=== PATIENT | female | born 1985 | race Caucasian/White ===

== ENCOUNTER 2022-04-05 10:47 | Outpatient (REF) | payer BC, SELFPAY ==
[2022-04-05 10:59] LABS: MANUAL DIFF FLAG NO
[2022-04-05 11:06] LABS: Basophils Absolute Auto 0.1 X10*3/uL (0.0-0.2); Basophils Percent Auto 0.9 % (0-2); Eosinophils Absolute Auto 0.1 X10*3/uL (0.0-0.4); Eosinophils Percent Auto 0.9 % (0-4); Hematocrit 39.7 % (37.0-47.0); Hemoglobin 12.8 g/dl (12.0-16.0); Imm Gran Abs Auto 0.02 X10*3/uL (0.00-0.03); Imm Gran Pct Auto 0.3 % (0.0-0.4); Lymphocytes Absolute Auto 2.1 X10*3/uL (1.2-4.9); Lymphocytes Percent Auto 32.5 % (20-40); Mean Corpuscular HGB Conc 32.2 g/dl (31.0-35.0); Mean Corpuscular Hemoglobin 28.6 pg (27.0-33.0); Mean Corpuscular Volume 88.8 fL (80.0-98.0); Mean Platelet Volume 9.6 fL (9.4-12.3); Monocytes Absolute Auto 0.6 X10*3/uL (0.1-1.2); Neutrophils Absolute Auto 3.7 x10*3/uL (2.0-8.3); Neutrophils Percent Auto 56.4 % (45-73); Platelet Count 305 X10*3/uL (160-400); Red Blood Count 4.47 X10*6/uL (4.20-5.50); Red Cell Distribution Width 12.9 % (11.0-16.0); White Blood Count 6.6 X10*3/uL (4.8-10.8)
[2022-04-05 11:22] LABS: Appearance Urine Cloudy; Color Urine Yellow; Glucose Urine UA Negative (Negative); Leukocyte Esterase Urine Large (3+) (Negative); Nitrite Urine Negative (Negative); PH >= 9.0 (5.0-9.0); UMIC TRIGGER UA YES; Urine Blood Negative (Negative); Urine Ketones Negative (Negative); Urine Protein 30 (1+) mg/dL (Neg-Trace)
[2022-04-05 11:33] LABS: Alanine Aminotransferase 11 U/L (0-31); Albumin Level 4.4 g/dL (3.5-5.0); Alkaline Phosphatase 75 U/L (39-117); Anion Gap 12 (12-20); Aspartate Amino Transferase 14 U/L (5-31); Bilirubin Total 0.5 mg/dL (0.0-1.0); Blood Urea Nitrogen 8 mg/dL (9-16); Calcium 9.2 mg/dL (8.4-10.2); Carbon Dioxide 25 mmol/L (22-29); Chloride 104 mmol/L (96-108); Cholesterol 191 mg/dL; Estimated Glomerular Filt Rate > 60; Glucose Fasting 98 mg/dL (60-99); HDL Cholesterol 42 mg/dL; LDL Cholesterol Calculated 134 mg/dl; Potassium 4.2 mmol/L (3.3-5.1); Sodium 137 mmol/L (135-145); Total Protein 6.9 g/dL (6.5-8.0); Triglycerides 77 mg/dL
[2022-04-05 11:40] LABS: Microalbum/Creatinine Ratio Ur 3.6 ug/mg cr
[2022-04-05 11:56] LABS: TSH reflex Free T4 2.11 uIU/mL (0.32-4.0)
[2022-04-05 12:17] LABS: Bacteria Urine 4+ (None Seen); Hyaline Casts Urine 0-2 /LPF (0-2); RBC Urine 0-2 /HPF (0-2); WBC Urine 21-50 /HPF (0-5)
== END 2022-04-05 10:48 | disposition home or self-care (01) ==
LOC: HO.LAB 10:47
PROVIDERS: Visit Provider Family Medicine
DX: Z00.00 Encounter for general adult medical examination without abnormal findings (principal); I10 Essential (primary) hypertension
CPT/HCPCS: 36415; 80053; 80061; 81001; 82043; 84443; 85025

== ENCOUNTER 2022-06-02 14:01 | Outpatient (REF) | payer BC, SELFPAY ==
[2022-06-02 14:14] LABS: Appearance Urine Clear; Color Urine Yellow; Glucose Urine UA Negative (Negative); Leukocyte Esterase Urine Moderate (2+) (Negative); Nitrite Urine Negative (Negative); PH 8.5 (5.0-9.0); UMIC TRIGGER UA YES; Urine Blood Negative (Negative); Urine Ketones Negative (Negative); Urine Protein Negative (Neg-Trace)
[2022-06-02 14:25] LABS: Bacteria Urine 1+ (None Seen); Hyaline Casts Urine 0-2 /LPF (0-2); RBC Urine 0-2 /HPF (0-2); Squamous Epithelial Cell Urine 0-2 /HPF (0-2); WBC Urine 0-5 /HPF (0-5)
== END 2022-06-02 14:02 | disposition home or self-care (01) ==
LOC: HO.LNP 14:01
PROVIDERS: Visit Provider Family Medicine
DX: R82.90 Unspecified abnormal findings in urine (principal)
CPT/HCPCS: 81001; 87086

== ENCOUNTER 2022-11-11 07:06 | Outpatient (REF) | payer BC, SELFPAY ==
[2022-11-11 08:17] LABS: Cholesterol 198 mg/dL; HDL Cholesterol 43 mg/dL; LDL Cholesterol Calculated 137 mg/dl; Triglycerides 91 mg/dL
== END 2022-11-11 07:07 | disposition home or self-care (01) ==
LOC: HO.LAB 07:06
PROVIDERS: PCP Family Medicine; Visit Provider Family Medicine
DX: Z00.00 Encounter for general adult medical examination without abnormal findings (principal); E78.00 Pure hypercholesterolemia, unspecified
CPT/HCPCS: 36415; 80061

== ENCOUNTER 2022-11-17 14:50 | Outpatient (AMB) | payer BC, SELFPAY ==
--- NOTE | 2022-11-17 14:45 | MHC.PC.OV ---
Intake Visit Reasons: f/u labs Intake Note: Patient is following up on her labs today. Allergies Seasonal Allergies Allergy (Mild, Verified 11/17/22 14:46) congestion Tobacco use date assessed: 11/17/22 Dental Screening Dental Screen Date: 11/17/22 Did you have a dental visit in the last 12 months?: Yes Did you have a dental problem in the last 6 months where you did not have access to dental care?: No Was dental information given to patient?: Patient has dentist HPI f/u labs HPI Details 37 y/o female presents to f/u CPE-labs via telemedicine. Labs were drawn 11/11/22. Reviewed labs with pt. Triglycerides 91. TC 198. LDL 137. HDL 43. PFSH Medical History Asthma Social History Housing: [place] [place] Patient Tobacco Use Status: Never used Tobacco e-Cigarette/Vaping Use: Never Used service: No Current occupational status: employed Current occupational exposures/hazards: No Cognitive needs: No Hearing needs: No Vision needs: Yes Questionnaire Thrive Questionnaire Date Thrive assessed: 04/01/22 GORAN-7 AMB Questionnaire GORAN-7 Date GORAN - 7 assessed: 04/01/22 Source: Developed by Drs. Arpan Lazo, Kandi Elizondo, Anirudh Ribera and colleagues, with an educational raffy from [employer]. Physical exam (Primary Care) Tobacco/Smoking Status: Tobacco use Status Tobacco use date assessed 11/17/22 11/17/22 14:47 Patient Tobacco Use Status Never used Tobacco 11/17/22 14:47 e-Cigarette/Vaping Use Never Used 11/17/22 14:47 Thrive Assessment: Date of Thrive Assessment Date Thrive assessed 04/01/22 11/17/22 14:47 Telehealth Telehealth Location of provider rendering services: practice address Location of patient: address on file Patient Identification confirmed using: Name, : Yes Telehealth method: voice only Patient verbally consented to treatment: Yes Patient verbally consented to billing insurance company: Yes Patient informed of any privacy concerns related to visit: Yes Minutes spent on Phone/Video with Pt.: 5 Assessment and Plan Assessment & Plan (1) Elevated LDL cholesterol level: Code(s): E78.00 - Pure hypercholesterolemia, unspecified Plan: Ongoing mildly elevated LDL cholesterol Encouraged continued lifestyle changes Will follow-up at her next appointment Orders: Orders Comprehensive [place]. Panel Fast Today Z00.00 - Encounter for general adult medical examination without abnormal findings Lipid Panel Today Z00.00 - Encounter for general adult medical examination without abnormal findings TSH reflex Free T4 Today Z00.00 - Encounter for general adult medical examination without abnormal findings Microalbumin, Random (w Creat) Today I10 - Essential (primary) hypertension UA and rflx microscopic Today Z00.00 - Encounter for general adult medical examination without abnormal findings Coding Level of Care Code Tele Est Pt Level 2 (06854) Diagnoses Elevated LDL cholesterol level E78.00
== END 2022-11-17 15:05 | disposition home or self-care (01) ==
LOC: HO.HMGFM 14:50
PROVIDERS: PCP Family Medicine; Visit Provider Family Medicine
DX: E78.00 Pure hypercholesterolemia, unspecified (principal)
CPT/HCPCS: 99441

== ENCOUNTER 2023-04-01 12:06 | Outpatient (AMB) | payer BC, SELFPAY ==
--- NOTE | 2023-04-01 12:02 | MHC.PC.OV ---
Intake Visit Reasons: Covid positive [phone] Intake Note: Patient would need medication to help her sleep. Patient would also need some type of letter for this visit stating that it was done and what the visit was for. Wiping Cloth Cutter Required: No Allergies Seasonal Allergies Allergy (Mild, Verified 04/01/23 12:04) congestion Tobacco use date assessed: 11/17/22 HPI HPI Comments History of Present Illness Details This is a telephonic telehealth visit for positive COVID-19 Patient reports nasal congestion, sore throat, cough, headaches, subjective fever, chills and sleep disturbances at night. She notes that she tested positive at home for COVID-19 yesterday and the day before. No SOB, wheezing, or chest pain PFSH Medical History Asthma Social History Housing: Apartment ([facility] [place] ) Patient Tobacco Use Status: Never used Tobacco e-Cigarette/Vaping Use: Never Used service: No Current occupational status: employed Current occupational exposures/hazards: No Cognitive needs: No Hearing needs: No Vision needs: Yes Questionnaire Thrive Questionnaire Date Thrive assessed: 04/01/22 GORAN-7 AMB Questionnaire GORAN-7 Date GORAN - 7 assessed: 04/01/22 Source: Developed by Drs. rApan Lazo, Kandi Elizondo, Anirudh Ribera and colleagues, with an educational raffy from [employer] Review of Systems Const Details: Const Reports chills, Denies fatigue, Reports fever(s), Reports headache(s) and Denies weakness ENT Reports as per HPI Card Denies chest pain, Denies lightheadedness, Denies dyspnea and Denies other (Palpitations) Resp Reports cough, Denies dyspnea, Denies wheezing and Denies other ( shortness of breath) GI Denies abdominal pain, Denies melena, Denies hematochezia, Denies change in bowel habits, Denies dyspepsia and Denies nausea Denies hematuria and Denies dysuria Musc Denies abnormal gait, Denies myalgias, Denies arthralgias, Denies numbness and Denies tingling Skin/Breast Denies rash, Denies unusual bruising and Denies wounds Neuro Denies abnormal gait, Denies dizziness, Denies headache(s), Denies memory loss, Denies numbness, Denies Sensory deficit (Neuro), Denies tingling and Denies weakness Psych Denies anxiety, Denies depression, Denies memory loss Endo Denies cold intolerance, Denies fatigue, Denies heat intolerance, Denies polydipsia and Denies polyuria Aller/Immun Denies wheezing Physical exam (Primary Care) Tobacco/Smoking Status: Tobacco use Status Tobacco use date assessed 11/17/22 04/01/23 12:05 Patient Tobacco Use Status Never used Tobacco 04/01/23 12:05 e-Cigarette/Vaping Use Never Used 04/01/23 12:05 Thrive Assessment: Date of Thrive Assessment Date Thrive assessed 04/01/22 04/01/23 12:05 Const Other: Telehealth visit. No physical exam Telehealth Telehealth Location of provider rendering services: practice address Location of patient: address on file Patient Identification confirmed using: Name, : Yes Telehealth method: voice only Patient verbally consented to treatment: Yes Patient verbally consented to billing insurance company: Yes Patient informed of any privacy concerns related to visit: Yes Assessment and Plan Assessment & Plan (1) COVID-19: Code(s): U07.1 - COVID-19 Plan: COVID-19 symptoms No shortness of breath, wheezing, or chest pain May take Tylenol ibuprofen for pain, fever, or discomfort Adequate hydration and rest encouraged Call and notify PCP with worsening or new symptoms such as shortness of breath, chest pain, or wheezing Verbalized understanding and agreed with treatment plan Coding Level of Care Code Tele Est Pt Level 2 (93120) Diagnoses COVID-19 U07.1 Time Spent (min) 15
== END 2023-04-01 14:51 | disposition home or self-care (01) ==
LOC: HO.HMGFM 12:06
PROVIDERS: PCP Family Medicine; Visit Provider Nurse Practitioner Family
DX: U07.1 COVID-19 (principal)
CPT/HCPCS: 99442

== ENCOUNTER 2023-06-02 08:43 | Outpatient (REF) | payer BC, SELFPAY ==
[2023-06-02 10:17] LABS: Alanine Aminotransferase 12 U/L (0-31); Albumin Level 4.2 g/dL (3.5-5.0); Alkaline Phosphatase 77 U/L (39-117); Anion Gap 10 (12-20); Appearance Urine Clear; Aspartate Amino Transferase 14 U/L (5-31); Bilirubin Total 0.5 mg/dL (0.0-1.0); Blood Urea Nitrogen 9 mg/dL (9-16); Calcium 10.6 mg/dL (8.4-10.2); Carbon Dioxide 29 mmol/L (22-29); Chloride 104 mmol/L (96-108); Cholesterol 221 mg/dL (<200); Color Urine Yellow; Estimated Glomerular Filt Rate > 60; Glucose Fasting 93 mg/dL (60-99); Glucose Urine UA Negative (Negative); HDL Cholesterol 51 mg/dL (>40); LDL Cholesterol Calculated 149 mg/dL (<100); Leukocyte Esterase Urine Trace (Negative); Nitrite Urine Negative (Negative); Potassium 4.4 mmol/L (3.3-5.1); Sodium 139 mmol/L (135-145); Total Protein 7.2 g/dL (6.5-8.0); Triglycerides 105 mg/dL (<150); UMIC TRIGGER UA YES; Urine Blood Trace (Negative); Urine Ketones Negative (Negative); Urine Protein Negative (Neg-Trace)
[2023-06-02 10:26] LABS: Bacteria Urine Trace (None Seen); Hyaline Casts Urine 0-2 /LPF (0-2); Squamous Epithelial Cell Urine 0-2 /HPF (0-2); WBC Urine 0-5 /HPF (0-5)
[2023-06-02 10:38] LABS: TSH reflex Free T4 3.51 uIU/mL (0.32-4.0)
[2023-06-02 11:41] LABS: Creatinine Urine 143.84 mg/dL; Microalbum/Creatinine Ratio Ur 4.8 ug/mg cr (<30)
== END 2023-06-02 08:44 | disposition home or self-care (01) ==
LOC: HO.LAB 08:43
PROVIDERS: PCP Family Medicine; Visit Provider Family Medicine
DX: Z00.00 Encounter for general adult medical examination without abnormal findings (principal); I10 Essential (primary) hypertension
CPT/HCPCS: 36415; 80053; 80061; 81001; 82043; 82570; 84443

== ENCOUNTER 2023-06-08 16:01 | Outpatient (AMB) | payer BC, SELFPAY ==
--- NOTE | 2023-06-08 16:15 | A.OFFPC_ITS ---
Vital Signs 06/08/23 16:16 Height 5 ft 9 in Weight 218 lb BMI 32.2 BP 122/68 Blood Pressure Location Lt brachial Position Sitting Pulse 71 Pulse Source Pulse Oximeter Pulse Oximetry (%) 98 Oxygen Delivery Method Room Air Intake Visit Reasons: CPE with follow-up labs and health maintenance Intake Note: Patient is here for her physical today, and would like her ears looked at, and referral for a sleep clinic. Patient would like to talk about options regarding her bone spur in her foot. Allergies Seasonal Allergies Allergy (Mild, Verified 06/08/23 16:20) congestion Tobacco use date assessed: 06/08/23 Dental Screening Dental Screen Date: 06/08/23 Did you have a dental visit in the last 12 months?: Yes Did you have a dental problem in the last 6 months where you did not have access to dental care?: No Was dental information given to patient?: Patient has dentist HPI CPE with follow-up labs and health maintenance HPI Details 37 y/o female presents for a CPE with f/ u labs and health maintenance. Labs were drawn 06/02/23. Reviewed labs with pt. Triglycerides 105. TC 221. LDL 149. HDL 51. Pt is requestting a referral for a sleep clinic. Pt reports ear discomfort. Pt reports a bone spur in her foot which she had seen asbestos brake lining finisher helper for. She does have plantar fasciitis and asbestos brake lining finisher helper did a steroid injection which helped for a few months but had worn off. She has been doing her exercises periodically. HPI Comments History of Present Illness Details Documentation assistance for Roque Murillo MD, was provided by Malachi Flores, Conditioning Machine Operator on 06/08/2023 4:54 PM YOVANI. I, Dr. Murillo, have read, observed, and verified documentation. [facility] Medical History Asthma Social History Housing: Apartment ([facility] [place] Patient Tobacco Use Status: Never used Tobacco e-Cigarette/Vaping Use: Never Used service: No Current occupational status: employed Current occupational exposures/hazards: No Cognitive needs: No Hearing needs: No Vision needs: Yes Questionnaire PHQ-9 Over the last 2 weeks, how often have you been bothered by any of the following problems? 1. Little interest or pleasure in doing things: several days 2. Feeling down, depressed, or hopeless: several days 3. Trouble falling or staying asleep, or sleeping too much: more than half the days 4. Feeling tired or having little energy: more than half the days 5. Poor appetite or overeating: more than half the days 6. Feeling bad about yourself - or that you are a failure or have let yourself or your family down: several days 7. Trouble concentrating on things, such as reading the newspaper or watching television: more than half the days 8. Moving or speaking so slowly that other people could have noticed. Or the opposite - being so fidgety or restless that you have been moving around a lot more than usual: several days 9. Thoughts that you would be better off or of hurting yourself in some way: not at all Total score: 12 Depression Screening Interpretation: Positive Depression Screening Done: Yes Source: Developed by Drs. Arpan Lazo, Kandi Elizondo, Anirudh Ribera and colleagues, with an educational raffy from [employer]. Thrive Questionnaire Date Thrive assessed: 06/08/23 I am a: Patient What is your living situation today?: I have a steady place to live Within the past 12 months, did the food you bought not last and you didn't have the money to get more?: Never true Within the past 12 months, did you worry whether your food would run out before you got money to buy more?: Never true Do you have trouble paying for medicines?: No Do you have trouble getting transportation to medical appointments?: No Do you have trouble paying your heating and electricity bill?: No Do you have trouble taking care of your child, family member or friend?: No Do you have trouble with day-to-day activities such as bathing, preparing meals, shopping, managing finances, etc.?: No Are you currently unemployed and looking for a job?: No Are you interested in more education?: No THRIVE Score: 0 AUDIT C Alcohol Use Questionnaire (AUDIT-C) 1. How often do you have a drink containing alcohol?: Monthly or less 2. How many drinks containing alcohol do you have on a typical day when you are drinking?: 1 or 2 3. How often do you have six or more drinks on one occasion?: Never Total Score: 1 GORAN-7 AMB Questionnaire GORAN-7 Date GORAN - 7 assessed: 06/08/23 Feeling nervous, anxious, or on edge: 1 = Several days Not being able to stop or control worryin = Several days Worrying too much about different things: 1 = Several days Trouble relaxin = Several days Being so restless that it is hard to sit still: 1 = Several days Becoming easily annoyed or irritable: 1 = Several days Feeling afraid as if something awful might happen: 1 = Several days Total GORAN-7 score (0-4 normal; 5-9 mild; 10-14 moderate; 15-21 severe): 7 Source: Developed by Drs. Arpan Lazo, Kandi Elizondo, Anirudh Ribera and colleagues, with an educational raffy from [employer]. Review of Systems Const Denies chills, Denies fatigue, Denies fever(s), Denies headache(s) and Denies weakness Eyes Denies change in vision ENT Denies dizziness, Denies headache(s), Denies hearing loss, Denies nasal congestion, Denies sinus pain, Denies sinus pressure and Denies sore throat Card Denies chest pain, Denies lightheadedness, Denies dyspnea and Denies other (palpitations) Resp Denies cough, Denies dyspnea and Denies wheezing GI Denies abdominal pain, Denies melena, Denies hematochezia, Denies change in bowel habits, Denies dyspepsia and Denies nausea Denies hematuria and Denies dysuria Musc Denies abnormal gait, Denies myalgias, Denies arthralgias, Denies numbness and Denies tingling Skin/Breast Denies rash, Denies unusual bruising and Denies wounds Neuro Denies abnormal gait, Denies dizziness, Denies headache(s), Denies memory loss, Denies numbness, Denies Sensory deficit (Neuro), Denies tingling and Denies weakness Psych Denies anxiety, Denies depression and Denies memory loss Endo Denies cold intolerance, Denies fatigue, Denies heat intolerance, Denies polydipsia and Denies polyuria Wilder/Lymph Denies easy bleeding and Denies easy bruising Aller/Immun Denies wheezing Physical exam (Primary Care) Vital Signs: Last Vital Signs Pulse 71 06/08/23 16:16 BP 122/68 06/08/23 16:16 Pulse Ox 98 06/08/23 16:16 Oxygen Delivery Method Room Air 06/08/23 16:16 BMI result Body Mass Index 32.2 Tobacco/Smoking Status: Tobacco use Status Tobacco use date assessed 06/08/23 06/08/23 16:20 Patient Tobacco Use Status Never used Tobacco 06/08/23 16:18 e-Cigarette/Vaping Use Never Used 06/08/23 16:18 PHQ-9: PHQ-9 Score PHQ-9: Total score 12 06/08/23 16:30 Depression Screening Interpretation: Positive Thrive Assessment: Date of Thrive Assessment Date Thrive assessed 06/08/23 06/08/23 16:30 Const General: no acute distress, well developed, alert and awake Nutritional Appearance: well nourished Orientation/consciousness: patient oriented x3 HENMT Head: Yes normocephalic and Yes atraumatic Ears: hearing grossly normal bilaterally and TM's normal bilaterally General nose exam: Normal external nose present and Normal nares present Mouth: Normal oral and palatal mucosa present and moist mucous membranes Teeth and gingiva: dentition normal Throat: Yes posterior oropharynx normal Eyes General: appearance normal, both eyes and all related structures Pupils: Equal, round and reactive pupils present and Pupil accommodation reflex normal EOM: EOMs intact bilaterally Neck Neck: Yes normal visual inspection, Yes no lymphadenopathy and Yes trachea midline Thyroid: Thyroid normal Carotids: no bruits Lymphatic: no lymphadenopathy noted Chest Chest palpation & inspection: normal inspection of the chest Resp Effort & Inspection: normal respiratory effort Auscultation: clear to auscultation bilaterally Cardio Rate: regular rate Rhythm: regular rhythm Heart sounds: S1 normal heart sound present, S2 normal heart sound present, no gallops, no murmurs and no rubs Bruits: no abdominal aortic bruits and no carotid bruits GI Palpation (GI): No Abdominal aortic bruit present, Soft to palpation, nontender, No hepatosplenomegaly present and No Rebound tenderness present Auscultation: normal bowel sounds General: Yes no CVA tenderness Back/Spine/Pelvis Back: no CVA tenderness Cervical Spine: cervical ROM normal and No Cervical spine tenderness Thoracic/Lumbar Spine: thoraco-lumbar ROM normal, No pain with thoraco-lumbar ROM, No thoracic spinal tenderness and No lumbar spinal tenderness Skin Lesions: no lesions Rashes: no rashes Trauma: no lacerations or abrasions Wounds: no wounds Nails: normal Neuro General: patient oriented x3 Cranial nerves: Yes Equal, round and reactive pupils present Cognition (Neuro): normal cognition Gait exam (Neuro): Normal gait present Motor exam (neuro): 5/5 motor strength present throughout Sensory Exam: No Sensory deficit (Neuro) Deep tendon reflexes (DTR's): Right patellar reflex intensity grade: 2+ and Left patellar reflex intensity grade: 2+ Extrem General: Yes normal to inspection and No edema Psych Appearance: grossly normal Affect: normal affect Attitude: cooperative Thought process: Normal thought process present Assessment and Plan Assessment & Plan (1) Adult general medical exam: Code(s): Z00.00 - Encounter for general adult medical examination without abnormal findings Plan: 37-year-old?female?presents?for?complete?physical?exam (2) Hypercholesterolemia: Code(s): E78.00 - Pure hypercholesterolemia, unspecified Plan: Cholesterol?levels?including?LDL?have?risen She?wants?to?work?at?dietary?changes.??We?will?follow-up?in?3?months. We?discussed?that? if?she?is?not?able?to?improve?lipid?levels?we?should?discuss?a?statin?medication . (3) Sleep apnea: Code(s): G47.30 - Sleep apnea, unspecified Plan: Referred?to?Sleep?Medicine (4) Cerumen impaction: Code(s): H61.20 - Impacted cerumen, unspecified ear Plan: Only?mild?cerumen?impactions?bilaterally. She?can?try?Debrox?drops?and?if?not?improving?she?can?let?us?know?and?we?can?try ?irrigation. (5) Asymptomatic bacteriuria: Code(s): R82.71 - Bacteriuria Plan: She?is?asymptomatic Recheck?urinalysis She?will?let?me?know?if?she?has?any?symptoms. Hydrate?well (6) Plantar fasciitis: Code(s): M72.2 - Plantar fascial fibromatosis Plan: Patient?has?seen?Podiatry?and?had?steroid?injections?which?helped?temporarily. Will?refer?to?[facility]?for?consider ation?of?injection?therapy?as?well?as?improved?physical?therapy. (7) Screening for cervical cancer: Code(s): Z12.4 - Encounter for screening for malignant neoplasm of cervix Plan: Patient?had?her?last?Pap?smear?about?3?years?ago. Will?follow-up?at?her?next?visit?to?ensure?that?she?has?her?next?Pap?smear. Orders: Orders Lipid Panel Today E78.00 - Pure hypercholesterolemia, unspecified, Z00.00 - Encounter for general adult medical examination without abnormal findings UA and rflx microscopic Today Z00.00 - Encounter for general adult medical examination without abnormal findings Comprehensive [place]. Panel Fast Today E78.00 - Pure hypercholesterolemia, unspecified, Z00.00 - Encounter for general adult medical examination without abnormal findings Referrals Physiatry Referral M72.2 - Plantar fascial fibromatosis Sleep Medicine Referral G47.30 - Sleep apnea, unspecified Coding Level of Care Code Est Pt Level 3 (91335) Est Pt Prev Care 18-39y(20628) Diagnoses Adult general medical exam Z00.00 Hypercholesterolemia E78.00 Sleep apnea G47.30 Cerumen impaction H61.20 Asymptomatic bacteriuria R82.71 Plantar fasciitis M72.2 Screening for cervical cancer Z12.4
[2023-06-08 16:16] VITALS: BP 122/68; PULSE 71; O2SAT 98; BMI 32.2
== END 2023-06-08 17:56 | disposition home or self-care (01) ==
PROVIDERS: PCP Family Medicine; Visit Provider Family Medicine
DX: Z00.00 Encounter for general adult medical examination without abnormal findings (principal); E78.00 Pure hypercholesterolemia, unspecified; G47.30 Sleep apnea, unspecified; H61.23 Impacted cerumen, bilateral; R82.71 Bacteriuria; M72.2 Plantar fascial fibromatosis
CPT/HCPCS: 99395

== ENCOUNTER 2023-10-08 12:25 | Outpatient (REF) | payer BC, SELFPAY ==
[2023-10-08 14:45] LABS: Appearance Urine Clear; Color Urine Yellow; Glucose Urine UA Negative (Negative); Leukocyte Esterase Urine Moderate (2+) (Negative); Nitrite Urine Negative (Negative); PH 7.5 (5.0-9.0); Specific Gravity - Urine 1.015 (1.005-1.025); UMIC TRIGGER UA YES; Urine Blood Trace (Negative); Urine Ketones Trace mg/dL (Negative); Urine Protein Negative (Neg-Trace)
[2023-10-08 14:47] LABS: Bacteria Urine 3+ (None Seen)
[2023-10-08 15:38] LABS: Alanine Aminotransferase 12 U/L (0-31); Albumin Level 4.2 g/dL (3.5-5.0); Alkaline Phosphatase 78 U/L (39-117); Anion Gap 13 (12-20); Aspartate Amino Transferase 13 U/L (5-31); Bilirubin Total 0.7 mg/dL (0.0-1.0); Blood Urea Nitrogen 7 mg/dL (9-16); Calcium 9.2 mg/dL (8.4-10.2); Carbon Dioxide 24 mmol/L (22-29); Chloride 107 mmol/L (96-108); Cholesterol 179 mg/dL (<200); Estimated Glomerular Filt Rate > 60; Glucose Fasting 88 mg/dL (60-99); HDL Cholesterol 37 mg/dL (>40); LDL Cholesterol Calculated 126 mg/dL (<100); Potassium 3.9 mmol/L (3.3-5.1); Sodium 140 mmol/L (135-145); Triglycerides 82 mg/dL (<150)
[2023-10-09 18:14] LABS: Lyme Abs Screen <0.90 index
== END 2023-10-08 12:26 | disposition home or self-care (01) ==
LOC: HO.WFDLDS 12:25
PROVIDERS: Physician Assistant Medical; Visit Provider Family Medicine
DX: Z00.00 Encounter for general adult medical examination without abnormal findings (principal); T14.8XXA Other injury of unspecified body region, initial encounter; W57.XXXA Bitten or stung by nonvenomous insect and other nonvenomous arthropods, initial encounter; E78.00 Pure hypercholesterolemia, unspecified
CPT/HCPCS: 36415; 80053; 80061; 81001; 86617; 86618

== ENCOUNTER 2023-12-14 12:59 | Outpatient (AMB) | payer BC, SELFPAY ==
--- NOTE | 2023-12-14 13:22 | AM.OFFWIN_ITS ---
Intake Vital Signs 12/14/23 13:23 Height 5 ft 9 in Weight 220 lb 2 oz BMI 32.5 BP 98/64 Blood Pressure Location Lt brachial Position Sitting Respiration 14 Pulse 54 Pulse Source Pulse Oximeter Pulse Oximetry (%) 99 Oxygen Delivery Method Room Air Intake Visit Reasons: UTI Intake Note: patient complaining of abd pain, back pain, burning when urinating, fatigue and headache since last thursday Patient Tobacco Use Status: Never used Tobacco Allergies Seasonal Allergies Allergy (Mild, Verified 12/14/23 13:48) congestion Medication List - Last Reconciled 12/14/23 by Jodee Mckeon, [facility]- escitalopram oxalate 20 mg PO DAILY 30 days Do you need a note to return to daycare/school/sports/work: Yes HPI HPI Comments History of Present Illness Details 38-year-old female here today with chief complaints of lower abdominal pain. Reports that last Thursday she felt generally under the weather and had a headache. She treated these symptoms with rest. Then over the last day or 2 she developed some lower abdominal pain described as shooting, reports that she has some pain in the left back and into the left groin. She has been drinking water and cranberry juice interesting to see if this would help her symptoms. She admits to feeling warm but unsure if she has not actual fever. She reports that her last menstrual period was a few weeks ago and that there was no chance of . She reports that she feels mildly tender on the external genitalia which started over the weekend, however denies any vaginal itching or discharge. She denies any history of kidney stones. She denies any nausea, vomiting, hematuria. She does endorse starting a new iron supplement about 3 weeks ago Exam: Awake alert NAD Sclera and conjunctiva clear bilat Nares patent, turbinates within normal limits, no sinus tenderness with palpa tion bilat TM intact and clear bilat MMM, pharynx WNL RRR LS CTAB NO CVAT bilat Abd: normoactive bs x 4, pain w palp over RLQ and LLQ without rebound but with gaurding, mild suprapubic pain with palp Plan Urine dip negative Xray today shows constipation otherwise WNL. Patient was called with these results at 16 40. The plan will be to treat her with MiraLax at bedtime and bisacodyl x2 doses. Recommend follow up in 2-3 days to ensure that her symptoms have improved. This note is constructed using voice recognition software. While every effort has been made to ensure accuracy in customer support consultant, still errors may have been included Sometimes, these errors may affect the content or meaning of the given sentence . Total time spent caring for the patient today was 30 minutes. This i ncludes time spent before the visit reviewing the chart, time spent during the visit, and time spent after the visit on documentation PFSH Medical History Asthma Social History Housing: Apartment ([facility] [place] ) Patient Tobacco Use Status: Never used Tobacco e-Cigarette/Vaping Use: Never Used service: No Current occupational status: employed Current occupational exposures/hazards: No Cognitive needs: No Hearing needs: No Vision needs: Yes Physical Exam Vital Signs: Last Vital Signs Pulse 54 12/14/23 13:23 Resp 14 12/14/23 13:23 BP 98/64 12/14/23 13:23 Pulse Ox 99 12/14/23 13:23 Oxygen Delivery Method Room Air 12/14/23 13:23 BMI result Body Mass Index 32.5 Results AMB Urinalysis Dipstick UR Leukocytes Negative Last Edit by Leslie Fuller CMA on 12/14/23 16:33 UR Nitrite Negative Last Edit by Leslie Fuller CMA on 12/14/23 16: 33 UR Urobilinogen Normal Last Edit by Leslie Fuller CMA on 12/14/23 16:33 UR Protein Negative Last Edit by Leslie Fuller CMA on 12/14/23 16: 33 UR Ph 6.5 Last Edit by Leslie Fuller CMA on 12/14/23 16:33 UR Blood Negative Last Edit by Leslie Fuller CMA on 12/14/23 16:33 UR Specific Eros 1.010 Last Edit by Leslie Fuller CMA on 16:33 UR Ketone Negative Last Edit by Leslie Fuller CMA on 12/14/23 16:3 3 UR Bilirubin Negative Last Edit by Leslie Fuller CMA on 12/14/23 16:33 UR Glucose Negative Last Edit by Leslie Fuller CMA on 12/14/23 16: 33 Results Reviewed Results Reviewed: [facility] [address] [facility] [address] [place] [address] XRay Report Signed Patient: Tete Rutherford MR#: [id number] : 1985 Acct:[id number] Age/Sex: 38 / F ADM Date: 12/14/23 Loc: HO.HMGCX Attending Dr: Jodee RESENDIZ Ordering Physician: Jodee Mckeon Date of Service: 12/14/23 Procedure(s): XR abdomen min 2V Accession Number(s): [id number] cc: Roque Murillo MD; Jodee Mckeon~ EXAMINATION: XR ABDOMEN COMPLETE CLINICAL INDICATION: Lower abdominal pain, unspecified. COMPARISON: None available. TECHNIQUE: 2 views of the abdomen performed on 4 images. FINDINGS: The bowel gas pattern is normal with no evidence of ileus or obstruction. Moderate stool burden in the ascending, transverse and descending colon. No unusual soft tissue calcifications are noted. S shaped thoracolumbar scoliosis. The bones are otherwise unremarkable. XR/XR abdomen min 2V IMPRESSION: Moderate stool burden. No evidence of bowel obstruction or ileus. Electronically signed by: Caprice Cole MD 12/14/2023 04:09 PM EDT Dictated By: Caprice Cole MD Signed By: <Electronically signed by Caprice Cole MD in OV> 12/14/23 1609 DD/ 1438 TD/TT: 12/14/23 1444 Water Quality Analyst: ALEX Assessment & Plan Assessment & Plan (1) Lower abdominal pain: Code(s): R10.30 - Lower abdominal pain, unspecified Plan: . (2) Constipation due to pain medication therapy: Code(s): K59.03 - Drug induced constipation Plan: . Orders: Orders AMB Urinalysis Dipstick Today R10.30 - Lower abdominal pain, unspecified Medications: New polyethylene glycol 3350 (Miralax) at bedtime 17 grams PO DAILY 510 grams 0RF bisacodyl 10 mg (2 x 5 mg) PO BEDTIME 2 days 4 tabs 0RF Patient Instructions: Walk-In Care (Urgent Care): We Make it Easy Walk-in for urgent medical issues such as: ? Seasonal Allergies ? Insect Bites ? Cough ? Diarrhea ? Acute Asthma Attacks ? Back, Knee or Joint Pain ? Ear Infection ? Fever without a Rash ? Headaches ? Nausea ? Ricketts Eye, Rash or Skin Irritation ? Sore Throat ? Sports Physicals ? Vomiting Most insurances are accepted. Patients do not need to be part of the [facility] to seek care at the walk-in clinic. Locations [facility] , [place] [address] ? [phone] [facility] [place] [facility] [place] provides services to ages 18 and over. Open Thursday-Thursday: 8 a.m. to 5 p.m. and Thursday: 9 a.m. to 3 p.m.* *Hours may vary due to staffing availability. To confirm Walk-In Care hours in [place], please call [phone]. [address] [place] [address] ? [phone] [facility] [place] provides services to ages 12 and over. Open Thursday-Thursday: 8 a.m. to 5 p.m. Hours may vary due to staffing availability. To confirm Walk-In Care hours in [place], please call [phone]. LABORATORY SERVICES: [facility] ? Primary Location [address] [place] [address] Thursday through Thursday 6:00 AM ? 5:00 PM Thursday 7:00 AM ? 11:00 AM* [phone] The [facility] is centrally located near the front entrance of the Medical Center for easy outpatient access. Convenient parking is provided for outpatients. *Hours may vary due to staffing availability. To confirm Laboratory hours for any location, please call [phone]. Offsite Location For your convenience, we offer offsite laboratory draw stations at the following locations: [address] [place] [address] [address], [address] Thursday through Neer[place] 7:30 AM ? 1:00 PM* [phone] *Hours may vary due to staffing availability. To confirm Laboratory hours for any location, please call [phone]. [place] ? [address] Thursday through Thursday 6:00 AM ? 3:30 PM* Thursday 6:30 AM ? 3 PM* [phone] *Hours may vary due to staffing availability. To confirm Laboratory hours for any location, please call [phone]. [address] [facility] Thursday through Thursday 7:30 AM ? 4:00 PM* [phone] *Hours may vary due to staffing availability. To confirm Laboratory hours for any location, please call [phone] [place] [address] Thursday through 9:00 AM ? 4:00 PM* *Hours may vary due to staffing availability. To confirm Laboratory hours for any location, please call [phone]. Appointments are not necessary. Walk-ins are welcome. Like all the departments throughout the [facility], our Lab undergoes frequent reviews to ensure the quality and accuracy of test results, and our staff takes special pride in its status as a nationally accredited facility. Patient Portal: ONE PATIENT. ONE RECORD. BETTER CARE. [facility] has a fully integrated, cutting- edge mobile electronic health information system that has revolutionized the way we care for our patients and manage our organization. This system improves communication and coordination enabling us to provide safe, higher-quality care, and an overall positive experience for staff and patients. Our first priority, as always, is to deliver the highest quality care possible. The system is running in the background supporting that priority. This portal is for all [facility] and [facility] services and practices. If you are experiencing any technical difficulties with enrolling or logging into the Patient Portal please complete the [facility] Patient Portal Technical Support Form. [facility] now offers a new secure on-line interactive tool for patients to review their health information ? Patient Portal. This interactive web portal will enable patients and their families to take an active role in their care by providing easy, secure access to their health information via the internet. The Patient Portal provides patients with instant access to their health information, including laboratory results, medications, allergies, demographic information, visit history, and more. In addition to managing their own care, parents and health care proxies with authorized consent will appreciate the ability to access the records of those individuals for whom they provide care. Please note: if you wish to gain access (Proxy) to another patient?s portal, you will be required to come to the Medical Records Department in person at [facility]. Both the patient giving proxy access and the proxy will need to provide photo identification and complete the appropriate authorization. The Patient Portal also allows track their appointments online. The [facility] Patient Portal also saves patients time by allowing them to submit updates to their demographic and contact information prior to their visits. Portal email notifications will also alert patients to any new activity on their portal, such as test results and new appointments. In order to initially enroll in the [facility] Patient Portal, you will need to enter some required information including the following: ? your [facility] Medical Record number ? your personal home email address ? name ? date of Please note: In order to enroll in the [facility] Patient Portal, we need to have your email address on file in your electronic medical record. The email address needs to be specific for one person (yourself) in order for your Portal enrollment to be successful. You can update your email address in person with our Registration staff when you are registering for a hospital visit. Otherwise, you will need to come to the Health Information Management (Medical Records) Department at [facility]. We are open from Thursday ? Thursday from 7:30 a.m. ? 4:30 p.m. You will be required to present a photo id. Once you have successfully enrolled in the Patient Portal, you will receive a one-time user id and password for the Portal, sent to your email address. This will allow you to log into the Patient Portal within 99 hrs and reset your own logon id and password, and define personal security questions. Once your permanent login and password have been set, you can log into the [facility] Patient Portal at any time via the blue button above or from the Portal Logon button on any page of the [facility] website. [facility] and [facility] encourage all of our patients to enroll in Patient Portal as it presents a valuable opportunity for patients and their families to actively participate in their care and stay healthy Welcome to [facility]. We look forward to working with you. [address] [place] [address] [place] Coding Level of Care Code Est Pt Level 4 (56990) Diagnoses Lower abdominal pain R10.30 Constipation due to pain medication therapy K59.03
[2023-12-14 13:23] VITALS: BP 98/64; PULSE 54; RESP 14; O2SAT 99; BMI 32.5
== END 2023-12-14 14:01 | disposition home or self-care (01) ==
PROVIDERS: PCP Family Medicine; Visit Provider Nurse Practitioner Family
DX: R10.30 Lower abdominal pain, unspecified (principal); K59.03 Drug induced constipation

== ENCOUNTER → 2023-12-14 12:59 | Outpatient (BNVA) | payer BC, SELFPAY | PROVIDERS: PCP Family Medicine | DX: R10.30 Lower abdominal pain, unspecified (principal); K59.03 Drug induced constipation; T50.905A Adverse effect of unspecified drugs, medicaments and biological substances, initial encounter; Y92.9 Unspecified place or not applicable | CPT/HCPCS: 81002 ==

== ENCOUNTER 2023-12-14 14:34 | Outpatient (REF) | payer BC, SELFPAY ==
--- NOTE | ~2023-12-14 | XR_ITS ---
EXAMINATION: XR ABDOMEN COMPLETE CLINICAL INDICATION: Lower abdominal pain, unspecified. COMPARISON: None available. TECHNIQUE: 2 views of the abdomen performed on 4 images. FINDINGS: The bowel gas pattern is normal with no evidence of ileus or obstruction. Moderate stool burden in the ascending, transverse and descending colon. No unusual soft tissue calcifications are noted. S shaped thoracolumbar scoliosis. The bones are otherwise unremarkable. XR/XR abdomen min 2V IMPRESSION: Moderate stool burden. No evidence of bowel obstruction or ileus. Electronically signed by: Caprice Cole MD 12/14/2023 04:09 PM EDT
== END 2023-12-14 14:35 | disposition home or self-care (01) ==
LOC: HO.HMGCX 14:34
PROVIDERS: PCP Family Medicine; Visit Provider Nurse Practitioner Family
DX: R10.30 Lower abdominal pain, unspecified (principal)
CPT/HCPCS: 74019

== ENCOUNTER 2023-12-16 15:10 | Outpatient (AMB) | payer BC, SELFPAY ==
--- NOTE | 2023-12-16 15:27 | MHC.OFFVIS ---
Vital Signs 12/16/23 15:28 Height 5 ft 9 in Weight 220 lb BMI 32.5 BP 104/74 Blood Pressure Location Rt brachial Position Sitting Intake Visit Reasons: INP-Sleep apnea, unspecified Intake Note: Patient presents for sleep apnea. Patient feels she struggles to get rest at night, feeling tired and fatigue. Allergies Seasonal Allergies Allergy (Mild, Verified 12/16/23 15:31) congestion Medication List - Last Reconciled 12/16/23 by MARISELA Middleton bisacodyl 10 mg (2 x 5 mg) PO BEDTIME 2 days epinephrine 1 mg IM DAILY escitalopram oxalate 20 mg PO DAILY 30 days polyethylene glycol 3350 (Miralax) 17 grams PO DAILY HPI Comments Details: 38-yr-old female presents for new in-person patient visit for sleep consultation. Patient reports chronic fatigue, low energy level, unrefreshing sleep. She tries to eat and drink well. Is a pescatarian. Most recent CBC, CMP, TSH- NL. Sleep questionnaire: Have you ever been diagnosed with a sleep disorder? No Have you ever had a sleep study in the past? No Have you ever been treated for a sleep disorder? No Do you take medications for a sleep disorder? No Do you have difficulty initiating sleep? No Do you have difficulty maintaining sleep? Occasionally at times. Do you wake up tired? Yes Do you have daytime tiredness or fatigue? Yes Do you easily fall asleep when inactive? Yes Do you snore? Unsure Do you wake up gasping at night? Yes Do you have episodes of apneas? No Do you have episodes of nocturnal chest pain or dyspnea? No Do you have bruxism? Maybe Do you have headaches upon awakening? Rare headaches Do you wake up with dry mouth or throat? No- improved after allergy shots Do you have GERD? No Do you have nocturia? No Do you have nocturnal leg cramps? No. Do you have symptoms of restless legs? No Do you act out your dreams? Can wake up laughing. Vivid dreams. Feels her dreams help her process things. Many years ago- woke up realizing that she had been scraping the jasso with her toes- as her toenail pain was on the jasso. Do you have sleep paralysis? Rarely has had this Do you have drop attacks? No Do you ever have hypnogenic hallucinations? Yes Do you have short REM onset in sleep? Denies Hypersomnolence questionnaire: Have you ever had episodes of sudden weakness? No Have you ever had episodes of sudden weakness associated with strong emotions? No Sleep hygiene questionnaire: What is your usual sleep routine? Usual bedtime is at 11pm; Usual wake-up time is at 7-7:30am. Sleeps in later on weekends. On her own she would sleep 1am-12pm. Do you take naps? Trying to nap less- when she naps she sleeps 2-3 hrs Is your sleep environment cool, dark, and quiet? Yes Do you exercise? walks dialy, some yoga. struggling w/ plantar fascitis, but this is improving. Do you take caffeine or other stimulants? 3-4 6oz cups of coffee per day- last cup around 5pm. Do you use electronics in bed? Phone. Does not use her laptop in bed. What is your work schedule? 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 [facility] Medical History (Updated 12/16/23 @ 17:14 by MARISELA Middleton) Anxiety and depression Asthma Family History (Updated 12/16/23 @ 15:33 by PABLITO Hunter) Father Lung cancer Mother Thyroid disease Social History Housing: Apartment ([facility] [place] ) Patient Tobacco Use Status: Never used Tobacco e-Cigarette/Vaping Use: Never Used service: No Current occupational status: employed Current occupational exposures/hazards: No Cognitive needs: No Hearing needs: No Vision needs: Yes Physical Exam Vital Signs: Last Vital Signs BP 104/74 12/16/23 15:28 BMI result Body Mass Index 32.5 Const General: no acute distress Orientation/consciousness: patient oriented x3 HEENT Other: Mallampati stage 3 Resp Effort & Inspection: normal respiratory effort and able to speak in complete sentences Cardio Rate: regular rate Rhythm: regular rhythm Neuro General: patient oriented x3 Psych Mental Status: mental status grossly normal Speech and movement: Clear speech present Attitude: cooperative Assessment & Plan Assessment & Plan (1) Hypersomnia: Code(s): G47.10 - Hypersomnia, unspecified Category: Medical (2) Snoring: Code(s): R06.83 - Snoring Category: Medical (3) Parasomnia: Code(s): G47.50 - Parasomnia, unspecified Category: Medical Plan Pt is advised to undergo sleep study to assess for sleep apnea: HST Check CBC, B12/folate, vit D. Will f/u with pt after study to discuss results and appropriate treatment options. Pt to call with any worsening concerns or questions. Future considerations: in-lab PSG/MSLT. Orders: Orders Vitamin B12 and Folate Today F41.8 - Other specified anxiety disorders, G47.10 - Hypersomnia, unspecified, G47.50 - Parasomnia, unspecified, Z00.00 - Encounter for general adult medical examination without abnormal findings Vitamin D 25-OH (D2 and D3) Today F41.8 - Other specified anxiety disorders, G47.10 - Hypersomnia, unspecified, G47.50 - Parasomnia, unspecified, Z00.00 - Encounter for general adult medical examination without abnormal findings Complete Blood Count Auto Diff Today F41.8 - Other specified anxiety disorders, G47.10 - Hypersomnia, unspecified, G47.50 - Parasomnia, unspecified, Z00.00 - Encounter for general adult medical examination without abnormal findings Coding Level of Care Code New Pt Level 4 (85359) Diagnoses Hypersomnia G47.10 Snoring R06.83 Parasomnia G47.50 Karthaus Sleepiness Scale Questions Sitting and reading: high chance of dozing Watching TV: high chance of dozing Sitting inactive in a theater, movie etc.: slight chance of dozing As a passenger in a car for an hour without break: slight chance of dozing Lying down in the afternoon when circumstances permit: high chance of dozing Sitting and talking to someone: would never doze Sitting quietly after lunch without alcohol: high chance of dozing In a car, while stopped for a few minutes in the traffic: would never doze ESS < 10: normal, ESS > 12: pathologic: 14
[2023-12-16 15:28] VITALS: BP 104/74; BMI 32.5
== END 2023-12-16 16:14 | disposition home or self-care (01) ==
PROVIDERS: PCP Family Medicine; Visit Provider Nurse Practitioner Family
DX: G47.10 Hypersomnia, unspecified (principal); R06.83 Snoring; G47.50 Parasomnia, unspecified
CPT/HCPCS: 99204

== ENCOUNTER → 2023-12-16 15:10 | Outpatient (BNVA) | payer BC, SELFPAY | PROVIDERS: PCP Family Medicine; Visit Provider Nurse Practitioner Family ==

== ENCOUNTER 2024-02-19 10:45 | Outpatient (AMB) | payer BC, SELFPAY ==
--- NOTE | 2024-02-19 10:53 | MHC.PC.OV ---
Vital Signs 02/19/24 10:57 Height 5 ft 9 in Weight 222 lb 4 oz BMI 32.8 BP 110/60 Blood Pressure Location Rt brachial Position Sitting Respiration 18 Pulse 62 Pulse Source Pulse Oximeter Temp 97.8 F Temp Source Oral Pulse Oximetry (%) 97 Oxygen Delivery Method Room Air Intake Visit Reasons: shoulder pain Intake Note: left should pain and fourth metatarsal bone pain Allergies Seasonal Allergies Allergy (Mild, Verified 02/19/24 10:56) congestion Tobacco use date assessed: 06/08/23 Dental Screening Dental Screen Date: 06/08/23 HPI shoulder pain HPI Details 38 y/o female presents today with complaints of shoulder pain. Notes L shoulder pain for months which she states sometimes get worse when she sleeps. She notes symptoms for several months. Denies any trauma. Also reports foot pain. [facility] Medical History (Updated 02/19/24 @ 11:08 by Malachi Flores) Anxiety and depression Asthma Family History (Updated 12/16/23 @ 15:33 by PABLITO Hunter) Father Lung cancer Mother Thyroid disease Social History Housing: [place]ment [place] [place] Patient Tobacco Use Status: Never used Tobacco e-Cigarette/Vaping Use: Never Used service: No Current occupational status: employed Current occupational exposures/hazards: No Cognitive needs: No Hearing needs: No Vision needs: Yes Questionnaire PHQ-9 Over the last 2 weeks, how often have you been bothered by any of the following problems? 1. Little interest or pleasure in doing things: several days 2. Feeling down, depressed, or hopeless: several days 3. Trouble falling or staying asleep, or sleeping too much: more than half the days 4. Feeling tired or having little energy: several days 5. Poor appetite or overeating: several days 6. Feeling bad about yourself - or that you are a failure or have let yourself or your family down: several days 7. Trouble concentrating on things, such as reading the newspaper or watching television: several days 8. Moving or speaking so slowly that other people could have noticed. Or the opposite - being so fidgety or restless that you have been moving around a lot more than usual: not at all 9. Thoughts that you would be better off or of hurting yourself in some way: not at all Total score: 8 Source: Developed by Drs. Arpan Lazo, Kandi Elizondo, Anirudh Ribera and colleagues, with an educational raffy from [employer]. Thrive Questionnaire Date Thrive assessed: 06/08/23 I am a: Patient What is your living situation today?: I have a steady place to live Within the past 12 months, did the food you bought not last and you didn't have the money to get more?: Never true Within the past 12 months, did you worry whether your food would run out before you got money to buy more?: Never true Do you have trouble paying for medicines?: No Do you have trouble getting transportation to medical appointments?: No Do you have trouble paying your heating and electricity bill?: No Do you have trouble taking care of your child, family member or friend?: No Do you have trouble with day-to-day activities such as bathing, preparing meals, shopping, managing finances, etc.?: No Are you currently unemployed and looking for a job?: No Are you interested in more education?: No Please select the resources that you would like help with: None Currently or been in a relationship where the following occur: No concerns reported THRIVE Score: 0 AUDIT C Alcohol Use Questionnaire (AUDIT-C) 1. How often do you have a drink containing alcohol?: Monthly or less 2. How many drinks containing alcohol do you have on a typical day when you are drinking?: 1 or 2 3. How often do you have six or more drinks on one occasion?: Never Total Score: 1 GORAN-7 AMB Questionnaire GORAN-7 Date GORAN - 7 assessed: 06/08/23 Feeling nervous, anxious, or on edge: 1 = Several days Not being able to stop or control worryin = More than half the days Worrying too much about different things: 2 = More than half the days Trouble relaxin = Several days Being so restless that it is hard to sit still: 0 = Not at all Becoming easily annoyed or irritable: 2 = More than half the days Feeling afraid as if something awful might happen: 2 = More than half the days Total GORAN-7 score (0-4 normal; 5-9 mild; 10-14 moderate; 15-21 severe): 10 Source: Developed by Drs. Arpan Lazo, Kandi Elizondo, Anirudh Ribera and colleagues, with an educational raffy from [employer]. Review of Systems Const Denies chills, Denies fatigue, Denies fever(s), Denies headache(s) and Denies weakness ENT Denies dizziness and Denies headache(s) Card Denies dyspnea Resp Denies cough, Denies dyspnea, Denies wheezing and Denies other (shortness of breath) Musc Details: L Shoulder pain Foot pain Denies numbness and Denies tingling Neuro Denies dizziness, Denies headache(s), Denies numbness, Denies tingling and Denies weakness Psych Denies anxiety and Denies depression Endo Denies fatigue Aller/Immun Denies wheezing Physical exam (Primary Care) Vital Signs: Last Vital Signs Temp 97.8 F 02/19/24 10:57 Pulse 62 02/19/24 10:57 Resp 18 02/19/24 10:57 BP 110/60 02/19/24 10:57 Pulse Ox 97 02/19/24 10:57 Oxygen Delivery Method Room Air 02/19/24 10:57 BMI result Body Mass Index 32.8 Tobacco/Smoking Status: Tobacco use Status Tobacco use date assessed 06/08/23 02/19/24 11:00 Patient Tobacco Use Status Never used Tobacco 02/19/24 11:00 e-Cigarette/Vaping Use Never Used 02/19/24 11:00 PHQ-9: PHQ-9 Score PHQ-9: Total score 8 02/19/24 11:00 Thrive Assessment: Date of Thrive Assessment Date Thrive assessed 06/08/23 02/19/24 11:00 Currently or been in a relationship where the following occur: No concerns reported Const General: well developed; No acute distress Nutritional Appearance: well nourished Orientation/consciousness: patient oriented x3 HENMT Head: Yes normocephalic and Yes atraumatic Eyes General: appearance normal, both eyes and all related structures Pupils: Equal, round and reactive pupils present EOM: EOMs intact bilaterally Resp Effort & Inspection: normal respiratory effort Neuro General: patient oriented x3 and gait normal Cranial nerves: Yes Equal, round and reactive pupils present Psych Affect: normal affect Coding Level of Care Code Est Pt Level 3 (69097) Diagnoses Shoulder pain M25.519 Foot pain M79.673 Assessment & Plan Assessment & Plan (1) Shoulder pain: Code(s): M25.519 - Pain in unspecified shoulder Category: Medical Plan: Left?posterior?shoulder?pain?at?trapezius?muscle.??Likely?chronic,?recurrent?strain Should?benefit?from?physical?therapy?which?had?ordered Can?also?use?OTC?ibuprofen?and?ice/heat Call?or?return?to?office?if?not?improving?or?worsens (2) Foot pain: Code(s): M79.673 - Pain in unspecified foot Category: Medical Plan: Mild?abrasion?of?skin on?4th?toe,?between?4th?and?5th?toes Can?use?gauze?as?a?buffer?or?OTC?padding Avoid?neuro?shoes Should?resolve?on?its?own?but?if?not?improving,?will?refer?to?Podiatry Orders: Orders Comprehensive [place]. Panel Fast Today M25.519 - Pain in unspecified shoulder, Z00.00 - Encounter for general adult medical examination without abnormal findings Complete Blood Count Auto Diff Today M25.519 - Pain in unspecified shoulder, Z00.00 - Encounter for general adult medical examination without abnormal findings Lipid Panel Today M25.519 - Pain in unspecified shoulder, Z00.00 - Encounter for general adult medical examination without abnormal findings Microalbumin, Random (w Creat) Today I10 - Essential (primary) hypertension, M25.519 - Pain in unspecified shoulder TSH reflex Free T4 Today M25.519 - Pain in unspecified shoulder, Z00.00 - Encounter for general adult medical examination without abnormal findings PT Evaluation and Treatment Today M25.519 - Pain in unspecified shoulder UA and rflx microscopic Today M25.519 - Pain in unspecified shoulder, Z00.00 - Encounter for general adult medical examination without abnormal findings
[2024-02-19 10:57] VITALS: BP 110/60; PULSE 62; RESP 18; TEMP 36.6; O2SAT 97; BMI 32.8
== END 2024-02-19 11:14 | disposition home or self-care (01) ==
PROVIDERS: PCP Family Medicine; Visit Provider Family Medicine
DX: M25.519 Pain in unspecified shoulder (principal); M79.673 Pain in unspecified foot

== ENCOUNTER 2024-06-28 12:50 | Outpatient (AMB) | payer BC, SELFPAY ==
--- NOTE | 2024-06-28 12:54 | MHC.OFFVIS ---
Vital Signs 06/28/24 12:55 Height 5 ft 9 in Weight 221 lb BMI 32.6 BP 116/80 Blood Pressure Location Rt brachial Position Sitting Pulse 59 Pulse Source Pulse Oximeter Pulse Oximetry (%) 98 Oxygen Delivery Method Room Air Intake Visit Reasons: Follow Up Intake Note: Patient presents follow up Hypersomnia. No labs Allergies Seasonal Allergies Allergy (Mild, Verified 06/28/24 12:58) congestion Medication List - Last Reconciled 06/28/24 by MARISELA Middleton bisacodyl 10 mg (2 x 5 mg) PO BEDTIME 2 days epinephrine 1 mg IM DAILY escitalopram oxalate 20 mg PO DAILY 90 days polyethylene glycol 3350 (Miralax) 17 grams PO DAILY HPI Comments Details: History of Present Illness The patient is a 38-year-old female presenting with sleep disorders. She reports persistent, non-restorative sleep and excessive daytime sleepiness. Sleep study is scheduled for August. Lexapro is noted to cause xerostomia. Allergic rhinitis, treated with immunotherapy, and potential vitamin deficiencies are discussed. History includes non-wheezing asthma. Social History - Weekly allergy shots for multiple environmental allergens. - Relieves symptoms significantly; convenient due to proximity to other frequented locations. Review of Systems - Respiratory: Reports improvement in allergy symptoms with immunotherapy. - Neurological: Reports persistent sleep difficulties, non-restorative sleep, excessive daytime sleepiness. - Psychiatric: Potential contributory effect of depression managed by Lexapro. - Oral Health: Reports dry mouth since starting Lexapro. 12/16/2023, HPI: 38-yr-old female presents for new in-person patient visit for sleep consultation. Patient reports chronic fatigue, low energy level, unrefreshing sleep. She tries to eat and drink well. Is a pescatarian. Most recent CBC, CMP, TSH- NL. Sleep questionnaire: Have you ever been diagnosed with a sleep disorder? No Have you ever had a sleep study in the past? No Have you ever been treated for a sleep disorder? No Do you take medications for a sleep disorder? No Do you have difficulty initiating sleep? No Do you have difficulty maintaining sleep? Occasionally at times. Do you wake up tired? Yes Do you have daytime tiredness or fatigue? Yes Do you easily fall asleep when inactive? Yes Do you snore? Unsure Do you wake up gasping at night? Yes Do you have episodes of apneas? No Do you have episodes of nocturnal chest pain or dyspnea? No Do you have bruxism? Maybe Do you have headaches upon awakening? Rare headaches Do you wake up with dry mouth or throat? No- improved after allergy shots Do you have GERD? No Do you have nocturia? No Do you have nocturnal leg cramps? No. Do you have symptoms of restless legs? No Do you act out your dreams? Can wake up laughing. Vivid dreams. Feels her dreams help her process things. Many years ago- woke up realizing that she had been scraping the jasso with her toes- as her toenail pain was on the jasso. Do you have sleep paralysis? Rarely has had this Do you have drop attacks? No Do you ever have hypnogenic hallucinations? Yes Do you have short REM onset in sleep? Denies Hypersomnolence questionnaire: Have you ever had episodes of sudden weakness? No Have you ever had episodes of sudden weakness associated with strong emotions? No Sleep hygiene questionnaire: What is your usual sleep routine? Usual bedtime is at 11pm; Usual wake-up time is at 7-7:30am. Sleeps in later on weekends. On her own she would sleep 1am-12pm. Do you take naps? Trying to nap less- when she naps she sleeps 2-3 hrs Is your sleep environment cool, dark, and quiet? Yes Do you exercise? walks dialy, some yoga. struggling w/ plantar fascitis, but this is improving. Do you take caffeine or other stimulants? 3-4 6oz cups of coffee per day- last cup around 5pm. Do you use electronics in bed? Phone. Does not use her laptop in bed. What is your work schedule? 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 [facility] Medical History (Updated 02/19/24 @ 11:08 by Malachi Flores) Anxiety and depression Asthma Family History Father Lung cancer Mother Thyroid disease Social History Housing: Apartment ([facility] [place] ) Patient Tobacco Use Status: Never used Tobacco e-Cigarette/Vaping Use: Never Used service: No Current occupational status: employed Current occupational exposures/hazards: No Cognitive needs: No Hearing needs: No Vision needs: Yes Physical Exam Vital Signs: Last Vital Signs Pulse 59 06/28/24 12:55 BP 116/80 06/28/24 12:55 Pulse Ox 98 06/28/24 12:55 Oxygen Delivery Method Room Air 06/28/24 12:55 BMI result Body Mass Index 32.6 Const General: no acute distress Orientation/consciousness: patient oriented x3 Resp Effort & Inspection: normal respiratory effort and able to speak in complete sentences Neuro General: patient oriented x3 Psych Mental Status: mental status grossly normal Speech and movement: Clear speech present Attitude: cooperative Assessment & Plan Assessment & Plan (1) Anxiety with depression: Code(s): F41.8 - Other specified anxiety disorders Category: Medical (2) Hypersomnia: Code(s): G47.10 - Hypersomnia, unspecified Category: Medical (3) Snoring: Code(s): R06.83 - Snoring Category: Medical (4) Parasomnia: Code(s): G47.50 - Parasomnia, unspecified Category: Medical Plan Discussion Notes During the visit, I reiterated the need for a home sleep study as the prior order seems to have not been processed. If results are inconclusive, the option of an in-lab sleep study or MSLT sleep study with mandatory cessation of Lexapro prior to testing was discussed, as medications such as Lexapro can interfere with the results of a MSLT type sleep study. Potential tests for B12, Folate, TSH and Vitamin D were discussed to rule out deficiencies known to contribute to fatigue and somnolence. The patient also mentioned the effectiveness of her ongoing immunotherapy for allergic rhinitis, affirming its beneficial impact on her quality of life. I advised her to stay hydrated due to Lexapro related dry mouth, and I introduced her to Xylemelt as an rarj-[id number]-[id number] remedy. Patient was informed and verbally consented to the use of an ambient scribe for clinic note documentation during this visit. Plan Home sleep study to be completed. Potential follow-up with in-lab study. Labs for vitamin deficiencies as ordered. Recommend addressing xerostomia with hydration and Xylemelt. Continue immunotherapy for allergic rhinitis. Maintain Lexapro for mood management. Will f/u with pt after study to discuss results and appropriate treatment options. Pt to call with any worsening concerns or questions. Future considerations: in-lab PSG/MSLT. Orders: Orders TSH reflex Free T4 06/28/24 G47.10 - Hypersomnia, unspecified, F41.8 - Other specified anxiety disorders Coding Level of Care Code Est Pt Level 4 (00982) Diagnoses Anxiety with depression F41.8 Hypersomnia G47.10 Snoring R06.83 Parasomnia G47.50
[2024-06-28 12:55] VITALS: BP 116/80; PULSE 59; O2SAT 98; BMI 32.6
--- OUTSIDE RECORDS SUMMARY | 2024-06-28 15:00 | XMS_ITS | Clinical Summary ---
Author Organization [facility] Address [address] [place] [address] Care Team Providers Care Sales Project Administrator Name Role Phone Unavailable Primary Care Provider Unavailabl e Source Comments PLEASE NOTE, if this patient is a minor, it may be UNLAWFUL to discuss sensitive information that is contained in these records (such as FAMILY PLANNING, MENTAL HEALTH or SUBSTANCE ABUSE) with the minor patient's parent or other person without the patient's specific authorization.[facility] Allergies No known active allergies Medications ibuprofen (ADVIL,MOTRIN) 800 mg tablet Take 800 mg by mouth every 4 to 6 (four to six) hours as needed Active EPINEPHrine (EPIPEN) 0.3 mg/0.3 mL pen injector Inject 0.3 ml intramuscularly as directed as needed For signs of severe allergic reaction, then call 911 09/24/19 22 Active Active Problems Problem Noted Date Diagnosed Date Otitis externa, acute, right 12/04/2020 Gas pain 01/17/2020 Deviated Nasal Septum 11/19/2018 Turbinate Hypertrophy 11/19/2018 Overweight 11/19/2018 Depression 11/16/2018 Asthma 11/16/2018 Overview (05/18/2024): (History of) Allergic Rhinitis 11/16/2018 Resolved Problems Problem Noted Date Diagnosed Date Resolved Date Diarrhea 01/17/2020 06/06/2024 Cerumen Impaction 11/19/2018 06/06/2024 Nasal congestion 11/19/2018 06/06/2024 Immunizations Immunization Administration Dates Next Due HPV 9 (Gardasil) 02/10/2017,12/09/2016, 7 Family History Medical History Relation Name Comments Alcohol/Drug Abuse Other Asthma Other Depression Other Mental illness Other Vision Problems Other Relation Name Status Comments Other Social History Tobacco Use Types Packs/Day Years Used Date Smoking Tobacco: Never Smokeless Tobacco: Never Alcohol Use Standard Drinks/Week Comments No 0 (1 standard drink = 0.6 oz pur e alcohol) Social Connections Answer Date Recorded Social Connections and Isolation 0 11/21/2018 Financial Resource Strain Answer Date R ecorded Financial Resource Strain 0 2018 Stress Answer Date Recorded Stress 0 11/21/2018 Physical Activity Answer Date Recorded Physical Activity 0 11/21/2018 Food Insecurity Answer Date Recorded Food 0 11/21/2018 Transportation Needs Answer Date Record ed Transportation 0 11/21/2018 Housing Stability Answer Date Recorded Housing 0 11/21/2018 Safety and Environment Answer Date Sandip rded Safety 0 11/21/2018 Utilities Answer Date Recorded Utilities 0 11/21/2018 Employment Answer Date Recorded Employment 0 11/21/2018 Comments Unknown Sex and Gender Information Value Date Recorded Sex Assigned at Not on file Legal Sex Female 10:51 AM PDT Gender Identity Not on file Sexual Orientation Not on file Last Filed Vital Signs Vital Sign Reading Time Taken Comments Blood Pressure 110/90 10/08/2016 3:28 PM PDT Pulse 82 10/08/2016 3:28 PM PDT Temperature 37.2 ??C (98.9 ??F) 10/08/2016 3:28 PM PD T Respiratory Rate 16 10/08/2016 3:28 PM PDT Oxygen Saturation 99% 10/08/2016 3:28 PM PDT Inhaled Oxygen Concentration - - Weight 77.6 kg (171 lb) 10/08/2016 3:28 PM PDT Height 175.3 cm (5' 9 ) 02/10/2017 10:20 AM PST Body Mass Index 25.25 10/08/2016 3:28 PM PDT Plan of Treatment Health Maintenance Due Date Last Done Comments Anxiety Screening 1985 Diabetes Screening 1985 HPV Screening 1985 Hepatitis C Screening 1985 Pap + HPV 1985 Tobacco Screening 1985 HIV Screening 2000 Relationship Safety Screening/Counseling 2000 Imm-DTaP/Tdap/Td (1 - Tdap) 2004 Imm-Hepatitis B (1 of 3 - 19+ 3-dose series) 5 Imm-Pneumococcal (1 of 2 - PCV) 2004 Cervical Cancer Screening 2006 Pap Smear 2006 Depression Monitoring 01/08/2017 10/08/2016 Hypertension Screening (#1) 10/08/2019 Syphilis Screening 03/31/2020 [id number] ( season) 2023 Imm-Influenza (#1) 2023 Alcohol and Drug Screen 03/30/2024 10/08/2016 Cervical Ablation/Cold-Knife Conization Discontinued Cervical Cryotherapy Discontinued Colposcopy Discontinued Endometrial Biopsy Discontinued Excision/Leep Discontinued HPV Genotyping Discontinued Vaginal Pap Discontinued Vulvoscopy Discontinued Insurance [facility] Member Subscriber Plan / Payer (Ef fective 2016-Present) Name:Tete Rutherford Relation to Subscriber:Self Name:Tete Rutherford Payer ID:[id number] Group ID:Not on file Type:Medicaid Address: [facility] [address] [place] [address]
== END 2024-06-28 13:32 | disposition home or self-care (01) ==
LOC: HO.HSMS 12:51
PROVIDERS: PCP Family Medicine; Visit Provider Nurse Practitioner Family
DX: F41.8 Other specified anxiety disorders (principal); G47.10 Hypersomnia, unspecified; R06.83 Snoring; G47.50 Parasomnia, unspecified
CPT/HCPCS: 99214

== ENCOUNTER 2024-06-28 12:50 | Outpatient (REF) | payer BC, SELFPAY ==
--- OUTSIDE RECORDS SUMMARY | 2024-06-28 16:11 | XMS_ITS | Clinical Summary ---
Author Organization [facility] Address [address] [place] [address] Care Team Providers Care Insecticide Mixer Name Role Phone Unavailable Primary Care Provider [...] Hypertension Screening (#1) 10/08/2019 Syphilis Screening 03/31/2020 [id number] ( season) 2023 Imm-Influenza (#1) 2023 Alcohol and Drug Screen 03/30/2024 10/08/2016 Cervical Ablation/Cold-Knife Conization Discontinued Cervical Cryotherapy Discontinued Colposcopy Discontinued Endometrial Biopsy Discontinued Excision/Leep Discontinued HPV Genotyping Discontinued Vaginal Pap Discontinued Vulvoscopy Discontinued Insurance [facility] Member Subscriber Plan / Payer (Ef fective 2016-Present) Name:Tete Rutherford Relation to Subscriber:Self Name:Tete Rutherford Payer ID:[id number] Group ID:Not on file Type:Medicaid Address: [facility] [address] [place] [address]
[2024-06-28 19:16] LABS: TSH reflex Free T4 2.62 uIU/mL (0.32-4.0)
== END 2024-06-28 12:51 | disposition home or self-care (01) ==
LOC: HO.HKASLDS 12:50
PROVIDERS: PCP Family Medicine; Visit Provider Nurse Practitioner Family
DX: G47.10 Hypersomnia, unspecified (principal); F41.8 Other specified anxiety disorders
CPT/HCPCS: 36415; 84443

== ENCOUNTER 2024-07-08 09:06 | Outpatient (REF) | payer BC, SELFPAY ==
[2024-07-08 09:26] LABS: MANUAL DIFF FLAG NO
--- OUTSIDE RECORDS SUMMARY | 2024-07-08 09:26 | XMS_ITS | Clinical Summary ---
Author Organization [facility] Address [address] [place] [address] Care Team Providers Care Guidance And Control System Engineer Name Role Phone Unavailable Primary Care Provider [...] Hypertension Screening (#1) 10/08/2019 Syphilis Screening 03/31/2020 [id number] ( season) 2023 Imm-Influenza (#1) 2023 Alcohol and Drug Screen 03/30/2024 10/08/2016 Cervical Ablation/Cold-Knife Conization Discontinued Cervical Cryotherapy Discontinued Colposcopy Discontinued Endometrial Biopsy Discontinued Excision/Leep Discontinued HPV Genotyping Discontinued Vaginal Pap Discontinued Vulvoscopy Discontinued Insurance [facility] Member Subscriber Plan / Payer (Ef fective 2016-Present) Name:Tete Rutherford Relation to Subscriber:Self Name:Tete Rutherford Payer ID:[id number] Group ID:Not on file Type:Medicaid Address: [facility] [address] [place] [address]
[2024-07-08 09:57] LABS: Basophils Absolute Auto 0.1 X10*3/uL (0.0-0.2); Eosinophils Absolute Auto 0.1 X10*3/uL (0.0-0.4); Eosinophils Percent Auto 2.3 % (0-4); Hematocrit 38.5 % (37.0-47.0); Hemoglobin 12.3 g/dl (12.0-16.0); Imm Gran Abs Auto 0.01 X10*3/uL (0.00-0.03); Imm Gran Pct Auto 0.2 % (0.0-0.4); Lymphocytes Absolute Auto 2.1 X10*3/uL (1.2-4.9); Mean Corpuscular HGB Conc 31.9 g/dl (31.0-35.0); Mean Corpuscular Hemoglobin 28.8 pg (27.0-33.0); Mean Corpuscular Volume 90.2 fL (80.0-98.0); Monocytes Absolute Auto 0.4 X10*3/uL (0.1-1.2); Monocytes Percent Auto 6.6 % (2-11); Neutrophils Absolute Auto 3.3 x10*3/uL (2.0-8.3); Neutrophils Percent Auto 54.9 % (45-73); Platelet Count 321 X10*3/uL (160-400); Red Blood Count 4.27 X10*6/uL (4.20-5.50); Red Cell Distribution Width 13.2 % (11.0-16.0)
[2024-07-08 10:32] LABS: Alanine Aminotransferase 21 U/L (0-31); Albumin Level 3.8 g/dL (3.5-5.0); Alkaline Phosphatase 61 U/L (39-117); Anion Gap 11 (12-20); Aspartate Amino Transferase 19 U/L (5-31); Bilirubin Total 0.3 mg/dL (0.0-1.0); Blood Urea Nitrogen 6 mg/dL (9-16); Calcium 8.6 mg/dL (8.4-10.2); Carbon Dioxide 26 mmol/L (22-29); Chloride 107 mmol/L (96-108); Cholesterol 188 mg/dL (<200); Estimated Glomerular Filt Rate > 60; Glucose Fasting 93 mg/dL (60-99); Glucose Random 93 mg/dL (60-115); HDL Cholesterol 41 mg/dL (>40); LDL Cholesterol Calculated 126 mg/dL (<100); Potassium 4.7 mmol/L (3.3-5.1); Sodium 139 mmol/L (135-145); Total Protein 5.9 g/dL (6.5-8.0); Triglycerides 105 mg/dL (<150)
[2024-07-08 10:53] LABS: Folate 12.7 ng/mL (> or = 4.0); Vitamin B12 397 pg/mL (200-900)
[2024-07-08 11:11] LABS: Appearance Urine Clear; Color Urine Yellow; Glucose Urine UA Negative (Negative); Leukocyte Esterase Urine Trace (Negative); Nitrite Urine Negative (Negative); UMIC TRIGGER UA YES; Urine Blood Negative (Negative); Urine Ketones Negative (Negative); Urine Protein Negative (Neg-Trace)
[2024-07-08 11:38] LABS: Creatinine Urine 145.48 mg/dL; Microalbum/Creatinine Ratio Ur 4.1 ug/mg cr (<30)
[2024-07-08 11:41] LABS: Bacteria Urine 1+ (None Seen); Hyaline Casts Urine 0-2 /LPF (0-2); RBC Urine 0-2 /HPF (0-2); WBC Urine 0-5 /HPF (0-5)
[2024-07-13 12:53] LABS: Vitamin D 25-OH, D2 <4 ng/mL; Vitamin D 25-OH, D3 28 ng/mL; Vitamin D 25-OH, Total 28 ng/mL (30-100)
== END 2024-07-08 09:07 | disposition home or self-care (01) ==
LOC: HO.LAB 09:06
PROVIDERS: PCP Family Medicine; Visit Provider Nurse Practitioner Family
DX: Z00.00 Encounter for general adult medical examination without abnormal findings (principal); M25.519 Pain in unspecified shoulder; I10 Essential (primary) hypertension; F41.8 Other specified anxiety disorders; T78.40XA Allergy, unspecified, initial encounter; E78.00 Pure hypercholesterolemia, unspecified; G47.10 Hypersomnia, unspecified
CPT/HCPCS: 36415; 80053; 80061; 81001; 81003; 82043; 82306; 82570; 82607; 82746; 84443; 85025

== ENCOUNTER → 2024-09-15 14:34 | Outpatient (REF) | payer BC, SELFPAY ==
--- OUTSIDE RECORDS SUMMARY | 2024-09-15 15:52 | XMS_ITS | Clinical Summary ---
Author Organization [facility] Address [address] [place] [address] Care Team Providers Care Director Business Travel Name Role Phone Unavailable Primary Care Provider [...] 82 10/08/2016 3:28 PM PDT Temperature 37.2 C (98.9 F) 10/08/2016 3:28 PM PDT Respiratory Rate 16 10/08/2016 3:28 PM PDT [...] (1 of 3 - 19+ 3-dose series) 07/24/200 5 Imm-Pneumococcal (1 of 2 - PCV) 2004 Cervical Cancer Screening 2006 Pap Smear 2006 Depression Monitoring 01/08/2017 10/08/2016 Hypertension Screening (#1) 10/08/2019 Syphilis Screening 03/31/2020 [id number] ( season) 2023 Alcohol and Drug Screen 03/30/2024 10/08/2016 Imm-Influenza (Season Ended) 2024 Cervical Ablation/Cold-Knife Conization Discontinued Cervical Cryotherapy Discontinued Colposcopy Discontinued Endometrial Biopsy Discontinued Excision/Leep Discontinued HPV Genotyping Discontinued Vaginal Pap Discontinued Vulvoscopy Discontinued Insurance [facility]
== END ==
LOC: HO.SL 14:34
PROVIDERS: PCP Family Medicine; Visit Provider Nurse Practitioner Family
DX: R06.83 Snoring (principal); G47.10 Hypersomnia, unspecified; G47.50 Parasomnia, unspecified
CPT/HCPCS: 95806

== ENCOUNTER → 2024-09-15 14:46 | Outpatient (BNV) | payer BC, SELFPAY | PROVIDERS: PCP Family Medicine; Visit Provider Psychiatry & Neurology Neurology | DX: R06.83 Snoring (principal) | CPT/HCPCS: 95806 ==

== ENCOUNTER 2024-10-12 08:15 | Outpatient (REF) | payer BC, SELFPAY ==
--- OUTSIDE RECORDS SUMMARY | 2024-10-12 08:18 | XMS_ITS | Clinical Summary ---
Author Organization [facility] Address [address] [place] [address] Care Team Providers Care Automobile Repair Service Estimator Name Role Phone Unavailable Primary Care Provider [...] Hypertension Screening (#1) 10/08/2019 Syphilis Screening 03/31/2020 [id number] ( season) 2023 Alcohol and Drug Screen 03/30/2024 10/08/2016 Imm-Influenza (#1) 2024 Cervical Ablation/Cold-Knife Conization Discontinued Cervical Cryotherapy Discontinued Colposcopy Discontinued Endometrial Biopsy Discontinued Excision/Leep Discontinued HPV Genotyping Discontinued Vaginal Pap Discontinued Vulvoscopy Discontinued Insurance [facility]
[2024-10-13 05:38] LABS: Lyme Abs Screen <0.90 index
== END 2024-10-12 08:16 | disposition home or self-care (01) ==
LOC: HO.LAB 08:15
PROVIDERS: PCP Family Medicine; Visit Provider Family Medicine
DX: T14.8XXA Other injury of unspecified body region, initial encounter (principal); W57.XXXA Bitten or stung by nonvenomous insect and other nonvenomous arthropods, initial encounter
CPT/HCPCS: 36415; 86617; 86618; 86753

== ENCOUNTER → 2024-11-18 19:30 | Outpatient (REF) | payer BC, SELFPAY | LOC: HO.SL 19:30 | PROVIDERS: PCP Family Medicine; Visit Provider Nurse Practitioner Family | DX: G47.33 Obstructive sleep apnea (adult) (pediatric) (principal); R06.83 Snoring; G47.50 Parasomnia, unspecified; G47.10 Hypersomnia, unspecified | CPT/HCPCS: 95810 ==

== ENCOUNTER → 2024-11-18 20:40 | Outpatient (BNV) | payer BC, SELFPAY | PROVIDERS: PCP Family Medicine; Visit Provider Psychiatry & Neurology Neurology | DX: G47.33 Obstructive sleep apnea (adult) (pediatric) (principal) | CPT/HCPCS: 95810 ==

== ENCOUNTER 2025-01-03 13:08 | Outpatient (AMB) | payer BC, SELFPAY ==
[2025-01-03 13:06] VITALS: BP 100/60; PULSE 64; O2SAT 97; BMI 33.2
--- NOTE | 2025-01-03 13:06 | A.OFFVIS_ITS ---
Vital Signs 01/03/25 13:06 Height 5 ft 9 in Weight 225 lb BMI 33.2 BP 100/60 Blood Pressure Location Rt brachial Position Sitting Pulse 64 Pulse Source Pulse Oximeter Pulse Oximetry (%) 97 Oxygen Delivery Method Room Air Intake Visit Reasons: 6mon follow-up Intake Note: Patient presents follow up Hypersomnia. No labs Photoengraving Supervisor Required: No Accompanied by: Self / Same As Patient Allergies Seasonal Allergies Allergy (Mild, Verified 01/03/25 13:12) congestion Medication List - Last Reconciled 01/03/25 by MARISELA Middleton bisacodyl 10 mg (2 x 5 mg) PO BEDTIME 2 days cholecalciferol (vitamin D3) 25 mcg PO DAILY 30 days doxycycline hyclate 200 mg (2 x 100 mg) PO ONCE 1 day epinephrine 1 mg IM DAILY escitalopram oxalate 20 mg PO DAILY 90 days polyethylene glycol 3350 (Miralax) 17 grams PO DAILY HPI Comments Details: 39-year-old female presents for follow-up of in-lab sleep study results and excessive daytime sleepiness. An interval in-lab sleep study showed mild obstructive sleep apnea. An order for APAP therapy was sent to the local respiratory company, and she is waiting to be scheduled for an appointment to receive the machine. 11/18/2024, In-lab PSG: AHI 7/hr, O2 hannah 92% with SpO2 under 88% for 1.9 kiera cat, and average SpO2 94%. PLMS 15/hr, PLMS arousal index 5/hr. She wonders if weight loss could affect her sleep apnea symptoms. She reports that she plans to try to lose weight by increasing her regular physical activity, such as joining a local yoga studio. She still enjoys doing yoga, prior to developing difficulties with plantar fasciitis. She states that she feels she eats an overall healthy and organic diet. She attributes most of the weight gain to her escitalopram therapy; however, as it has worked well for her mood, she plans to continue on escitalopram. 12/16/2023, initial HPI: 38-yr-old female presents for new in-person patient visit for sleep consultation. Patient reports chronic fatigue, low energy level, unrefreshing sleep. She tries to eat and drink well. Is a pescatarian. Most recent CBC, CMP, TSH- NL. Sleep questionnaire: Have you ever been diagnosed with a sleep disorder? No Have you ever had a sleep study in the past? No Have you ever been treated for a sleep disorder? No Do you take medications for a sleep disorder? No Do you have difficulty initiating sleep? No Do you have difficulty maintaining sleep? Occasionally at times. Do you wake up tired? Yes Do you have daytime tiredness or fatigue? Yes Do you easily fall asleep when inactive? Yes Do you snore? Unsure Do you wake up gasping at night? Yes Do you have episodes of apneas? No Do you have episodes of nocturnal chest pain or dyspnea? No Do you have bruxism? Maybe Do you have headaches upon awakening? Rare headaches Do you wake up with dry mouth or throat? No- improved after allergy shots Do you have GERD? No Do you have nocturia? No Do you have nocturnal leg cramps? No. Do you have symptoms of restless legs? No Do you act out your dreams? Can wake up laughing. Vivid dreams. Feels her dreams help her process things. Many years ago- woke up realizing that she had been scraping the jasso with her toes- as her toenail pain was on the jasso. Do you have sleep paralysis? Rarely has had this Do you have drop attacks? No Do you ever have hypnogenic hallucinations? Yes Do you have short REM onset in sleep? Denies Hypersomnolence questionnaire: Have you ever had episodes of sudden weakness? No Have you ever had episodes of sudden weakness associated with strong emotions? No Sleep hygiene questionnaire: What is your usual sleep routine? Usual bedtime is at 11pm; Usual wake-up time is at 7-7:30am. Sleeps in later on weekends. On her own she would sleep 1am- 12pm. Do you take naps? Trying to nap less- when she naps she sleeps 2-3 hrs Is your sleep environment cool, dark, and quiet? Yes Do you exercise? walks dialy, some yoga. struggling w/ plantar fascitis, but this is improving. Do you take caffeine or other stimulants? 3-4 6oz cups of coffee per day- last cup around 5pm. Do you use electronics in bed? Phone. Does not use her laptop in bed. What is your work schedule? 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 [facility] Medical History (Updated 07/20/24 @ 17:41 by MARISELA Middleton) Anxiety and depression Asthma Family History Father Lung cancer Mother Thyroid disease Social History Housing: Apartment ([facility] [place] ) Patient Tobacco Use Status: Never used Tobacco e-Cigarette/Vaping Use: Never Used service: No Current occupational status: employed Current occupational exposures/hazards: No Cognitive needs: No Hearing needs: No Vision needs: Yes Physical Exam Vital Signs: Last Vital Signs Pulse 64 01/03/25 13:06 BP 100/60 01/03/25 13:06 Pulse Ox 97 01/03/25 13:06 Oxygen Delivery Method Room Air 01/03/25 13:06 BMI result Body Mass Index 33.2 Const General: no acute distress Orientation/consciousness: patient oriented x3 Resp Effort & Inspection: normal respiratory effort and able to speak in complete sentences Neuro General: patient oriented x3, gait normal and moves all extremities Cranial nerves: Yes CN's II-XII intact bilaterally Cognition (Neuro): normal cognition Psych Mental Status: mental status grossly normal Speech and movement: Clear speech present Attitude: cooperative Assessment & Plan Assessment & Plan (1) Anxiety with depression: Code(s): F41.8 - Other specified anxiety disorders Category: Medical (2) Hypersomnia: Code(s): G47.10 - Hypersomnia, unspecified Category: Medical (3) Snoring: Code(s): R06.83 - Snoring Category: Medical (4) Parasomnia: Code(s): G47.50 - Parasomnia, unspecified Category: Medical Plan Reviewed in-lab PSG results, which were consistent with a mild degree of obstructive sleep apnea. There were also 5 periodic limb movements of sleep per hour associated with arousals. Advise that often even attempt% reduction in body weight can reduce symptoms of sleep apnea. Start APAP 5-20 cm H2O with EPR set to patient preference. Advised to monitor daytime sleepiness and periodic limb movements of sleep symptoms. Concur with increasing regular physical activity. Continue Lexapro for management of mood. Previously recommended addressing xerostomia with hydration and Xylemelt. Continue immunotherapy for allergic rhinitis. Continue vitamin-D supplement * Recheck vitamin-D level with next scheduled lab draw. Future considerations: in-lab PSG/MSLT. Will follow-up upon review of above and patient to follow-up in clinic in 3-6 months or sooner prn. Medications: Refilled cholecalciferol (vitamin D3) 25 mcg PO DAILY 30 caps 6RF 30 days E55.9 - Vitamin D deficiency, unspecified Coding Level of Care Code Est Pt Level 4 (89628) Diagnoses Anxiety with depression F41.8 Hypersomnia G47.10 Snoring R06.83 Parasomnia G47.50
--- OUTSIDE RECORDS SUMMARY | 2025-01-03 16:08 | XMS_ITS | Clinical Summary ---
Author Organization [facility] Address [address] [place] [address] Care Team Providers Care General Utility Worker Name Role Phone Unavailable Primary Care Provider [...] 2004 Imm-Hepatitis B (1 of 3 - 19 + 3-dose series) 2004 Imm-Pneumococcal (1 of 2 - PCV) 2004 Cervical Cancer Screening 2006 Pap Smear 2006 Depression Monitoring 01/08/2017 10/08/2016 Imm-HPV (3 - 3-dose SCDM series) 05/05/2017 02/10/2017, 12/09/2016, 10/08/2016 Hypertension Screening (#1) 10/08/2019 Syphilis Screening 03/31/2020 Alcohol and Drug Screen 03/30/2024 10/08/2016 [id number] ( season) 2024 Imm-Influenza (#1) 2024 Cervical Ablation/Cold-Knife Conization Discontinued Cervical Cryotherapy Discontinued Colposcopy Discontinued Endometrial Biopsy Discontinued Excision/Leep Discontinued HPV Genotyping Discontinued Vaginal Pap Discontinued Vulvoscopy Discontinued Insurance [facility]
--- OUTSIDE RECORDS SUMMARY | 2025-01-03 16:08 | XMS_ITS | Clinical Summary ---
Author Organization [facility] Address [address] [place] [id number] Phone Care Team Providers Care Clay Modeler Name Role Phone Pcp, Unknown Primary Care Provider Unavailabl e Allergies Active Allergy Reactions Criticality Noted Date Comments Penicillins 05/29/2017 Medications escitalopram oxalate (LEXAPRO) 20 MG tablet Take 20 mg by mouth daily. Active escitalopram oxalate (LEXAPRO) 20 MG tablet Take 1 tablet (20 mg total) by mouth daily. 30 tablet 01/29/2022 Active Immunizations Immunization Administration Dates Next Due DTP 10/28/1990, 8,09/27/1986,06/28,05/28/1986 HPV9 02/10/2017,12/09/2016,10/08/2016 Hep A-Hep B 09/05/2016,04/10/2016,02/02/2009 Hepatitis B, unspecified formulation 06/29/2007 Hib, unspecified formulation 03/30/1987 Influenza Quadrivalent MDCK Preservative Free IM 01/03/2022 Influenza Quadrivalent Prese rvative Free IM 03/04/2017,03/27/2016 MMR 06/30/2007,06/23/1987 Meningococcal MCV4, unspecif ied Formulation 06/29/2007 Polio - OPV 10/28/1990, 8,09/27/1986,06/28,05/28/1986 Td (adult),2 Lf Tetanus Toxo id, PF, Adsorbed 06/01/2005,08/15/1996 Tdap 04/10/2016 Social History Tobacco Use Types Packs/Day Years Used Date Smoking Tobacco: Never Assessed Education Answer Date Recorded Are you interested in more education? Not on leandra e 07/26/2022 Are you concerned about learning? Not on file 07/26/2022 No 07/26/2022 No 07/26/2022 Digital Access Answer Date Recorded No 08/24/2022 No 08/24/2022 No 08/24/2022 Reliable internet access at home? Not on file 08/24/2022 Device with a working camera? Not on file Comments Unknown Sex and Gender Information Value Date Recorded Sex Assigned at Not on file Legal Sex Female 1:58 PM EDT Gender Identity Not on file Sexual Orientation Not on file Last Filed Vital Signs Vital Sign Reading Time Taken Comments Blood Pressure 123/74 01/29/2022 6:44 PM EDT Pulse 54 01/29/2022 6:44 PM EDT Temperature 36.6 C (97.9 F) 01/29/2022 6:44 PM EDT Respiratory Rate 18 01/29/2022 6:44 PM EDT Oxygen Saturation 98% 01/29/2022 6:44 PM EDT Inhaled Oxygen Concentration - - Weight - - Height - - Body Mass Index - - Plan of Treatment Health Maintenance Due Date Last Done Comments DEPRESSION SCREENING 1997 SMOKING Hx and SMOKELESS TOBACCO SCREENING 1998 HEPATITIS C SCREENING 10/21/2003 HIV ONE-TIME SCREENING (18-6 5 YEARS) 10/21/2003 PAP SMEAR 2006 INFLUENZA VACCINE (#1) 2024 , 03/04/2017, 03/27/2016 COVID-19 VACCINE (2 - 2024-2 6 season) 2024 01/03/2022 Adult Td,Tdap Booster 04/10/2026 04/10/2016 , 06/01/2005, 08/15/1996 HIB VACCINES Completed 03/30/1987 MENINGOCOCCAL VACCINES (ACWY) Aged Out 06/29/2007 No longer eligible based on patient's age to complete this topic HEPATITIS A VACCINES Aged Out 09/05/2016, 04/10/2016, 02/02/2009 No longer eligible based on patient's age to complete this topic MENINGOCOCCAL VACCINES (B) Aged Out N o longer eligible based on patient's age to complete this topic PNEUMOCOCCAL VACCINES (0-49 years) Aged Out No longer eligible b ased on patient's age to complete this topic Medical Devices Not on file [place] [address] [place] [address] [place] [address] [place] [address] [place] [address] [place] [address] [place] [address] [place] [address] [place] [address] [place] [address] [place] [address] [place] [address] [place] [id number] [place] [address] [place] [address] [place] [address] HMO POS [facility] HMO POS Care Teams Clay Modeler Relationship Specialty Start Date End Date Pcp, Unknown PCP - General 12/31/21 Additional Source Comments The information contained in this document represents components of the legal health record. It is not the complete legal health record.[facility]
== END 2025-01-03 13:51 | disposition home or self-care (01) ==
LOC: HO.HSMS 13:09
PROVIDERS: PCP Family Medicine; Visit Provider Nurse Practitioner Family
DX: F41.8 Other specified anxiety disorders (principal); G47.10 Hypersomnia, unspecified; R06.83 Snoring; G47.50 Parasomnia, unspecified
CPT/HCPCS: 99214

== ENCOUNTER 2025-01-11 08:57 | Outpatient (REF) | payer BC, SELFPAY ==
--- OUTSIDE RECORDS SUMMARY | 2025-01-11 09:39 | XMS_ITS | Clinical Summary ---
Author Organization [facility] Address [address] [place] [address] Care Team Providers Care Group Exercise Manager Name Role Phone Unavailable Primary Care Provider [...] Screening 1985 Diabetes Screening 1985 HPV Screening (self-collect) 1985 HPV Screening 1985 Hepatitis C Screening [...] 03/31/2020 Alcohol and Drug Screen 03/30/2024 10/08/2016 [id number] ( season) 2024 Imm-Influenza (#1) 2024 Cervical Ablation/Cold-Knife Conization Discontinued Cervical Cryotherapy Discontinued Colposcopy Discontinued Excision/Leep Discontinued HPV Genotyping Discontinued Vaginal Pap Discontinued Vulvoscopy Discontinued Insurance [facility]
[2025-01-11 09:48] LABS: Appearance Urine Cloudy; Glucose Urine UA Negative (Negative); PH 6.0 (5.0-9.0); Specific Gravity - Urine 1.020 (1.005-1.025); UMIC TRIGGER UA YES
== END 2025-01-11 08:58 | disposition home or self-care (01) ==
LOC: HO.LAB 08:57
PROVIDERS: PCP Family Medicine; Visit Provider Family Medicine
DX: Z00.00 Encounter for general adult medical examination without abnormal findings (principal); M25.519 Pain in unspecified shoulder
CPT/HCPCS: 81001

== ENCOUNTER 2025-02-08 11:24 | Outpatient (AMB) | payer BC, SELFPAY ==
--- OUTSIDE RECORDS SUMMARY | 2021-04-27 19:00 | XMS_ITS | Continuity of Care Document ---
Author Organization [facility] Address [address] [place] [id number] Phone Care Team Providers Care Enterprise Systems Manager Name Role Phone ZConversion, Provider Unavailable Unavailabl e Allergies, Adverse Reactions, Alerts Substance Reaction Status Criticality Penicillins RashRash Active No Information Medications Medication Instructions Dosage Effective Dates (start - stop) Status Comments loratadine 10 mg tablet take 1 tablet by oral route every day - Active Procedures Procedure Date dental prophylaxis adult topical fluoride varnish, ther eddie for m od to high oral hygiene instruction dental bitewings four films periapical first film periapical ea add periodic oral evaluation oral hygiene instruction periodic oral evaluation oral hygiene instruction dental prophylaxis adult periapical ea add periapical first film dental bitewings four films periodic oral evaluation oral hygiene instruction periodic oral evaluation Caries Risk Assessment - Moderate Risk O oral hygiene instruction Advance Directives Directive Yes / No Effective Date File Name No Information Encounters Encounter Description Practice Location Reason(s) For Visit Diagnoses Date Provider Providers Copied on Encounter [facility], [address] [place] [address], [id number], tel:[phone] [employer]Conversion No Information ZConversion Provider. . [facility] of [address], [id number], [place] tel:[phone] [facility] No Information July- 9-201 8 Hill Michelle. [address] [place], [place], [id number], [place]. tel:[phone] [facility], [address] [place] [address], [id number], [place] tel:[phone] [facility] No Information 8-201 8 ZConversion Provider. . [facility], [address] [place] [address], [id number], [place] tel:[phone] [facility] No Information Jan-0 3-201 7 ZConversion Provider. . [facility], [address] [place] [address], [id number], [place] tel:[phone] [facility] No Information July-0 2-201 7 Vesely Hansa. [address] [place], [place], [id number], [place]. tel:[phone] [facility], [address] [place] [address], [id number], [place] tel:[phone] [facility] No Information July-0 1-201 7 ZConversion Provider. . [facility], [address] [place] [address], [id number], [place] tel:[phone] [facility] No Information 8-201 6 ZConversion Provider. . Family History Family Member Type Diagnosis Age At Onset No Information Payers Payer name Insurance type Covered democrat ID Authoriza tion(s) No Information Social History Type Description Quantity Date Captured Comments Sex Female Smoking Status No Information Chief Complaint And Reason For Visit No Information Reason For Referral Reason For Referral No Information History Of Present Illness Encounter Date Complaint History Of Prese nt Illness No Information Functional Status Date Functional Assessmen t No Information Instructions Date Instruction Additional Infor mation No Information Assessments Type Assessment Date No Information Patient Care Teams Name Effective Dates (start - stop) Status Members No Information
--- NOTE | 2025-02-08 11:28 | A.OFFPC_ITS ---
Vital Signs 02/08/25 11:32 Height 5 ft 9 in Weight 226 lb 4 oz BMI 33.4 BP 98/66 Blood Pressure Location Lt brachial Position Sitting Respiration 12 Pulse 50 Pulse Source Pulse Oximeter Temp 97.2 F Temp Source Oral Pulse Oximetry (%) 99 Oxygen Delivery Method Room Air Intake Visit Reasons: CPE with f/u labs and health maint. Intake Note: CPE. Cancer Genetics Assistant Required: No Allergies Seasonal Allergies Allergy (Mild, Verified 02/08/25 11:39) congestion Medication List - Last Reconciled 02/08/25 by Jodee Mckeon, [facility]- bisacodyl 10 mg (2 x 5 mg) PO BEDTIME 2 days cholecalciferol (vitamin D3) 25 mcg PO DAILY 30 days ciclopirox 8% topical DAILY epinephrine 1 mg IM DAILY escitalopram oxalate 20 mg PO DAILY 90 days polyethylene glycol 3350 (Miralax) 17 grams PO DAILY Tobacco use date assessed: 02/08/25 Dental Screening Dental Screen Date: 02/08/25 Did you have a dental visit in the last 12 months?: Yes Did you have a dental problem in the last 6 months where you did not have access to dental care?: No Was dental information given to patient?: Patient has dentist HPI HPI Comments History of Present Illness Details 39 y/o F with GORAN, LULA on CPAP, asthma, allergic rhinitis and conjunctivitis, vit d def, obesity, axillary hyperhydrosis s/p varicose veins, tonsillectomy Health Maintenance Tdap 2023 Flu 11/2024 Pap 2020 Mammo labs 07/08/24 LDL>, Vit D < Optho - wears glasses, last exam August 26, 2024 History of Present Illness The patient is a 39-year-old female presenting for a complete physical exam. Patient of Dr Murillo Obstructive Sleep Apnea: - The patient has a history of obstructi ve sleep apnea and uses a CPAP machine. - Her condition is managed by a sleep me dicine specialist, Dr. Kalli Muir, and she is awaiting new equipment. Allergic Rhinitis and Conjunctivitis: - The patient has chronic allergic rhini tis and conjunctivitis, managed by an lead dental assistant. - She receives weekly allergy shots and is about to start the maintenance phase. - She possesses an epinephrine auto-inje ctor, last refilled in September, but has not needed to use it. Anxiety and Depression: - The patient has a history of generaliz ed anxiety disorder mixed with depression. - She is treated with escitalopram 20 mg daily. - The patient notes that her anxiety can exacerbate her hyperhidrosis. Vitamin D Deficiency: - The patient has a known history of vit beckham D deficiency and was taking a 1000 IU supplement daily. - Due to continued low levels on her lab s from June 2024, she has recently doubled her dose to 2000 IU daily. Obesity: - The patient has a history of obesity w ith a recorded BMI of 33.4. Axillary Hyperhidrosis: - The patient reports a long-standing is lazarus with excessive underarm sweating, which she has recently started documenting with photos. - She states the sweating occurs even in air-conditioned environments and is exacerbated by anxiety. - She has an active relationship with a medical assistant supervisor but has not yet discussed this issue with them. Skin Boils: - The patient reports a new issue with b oils located in her groin area. - She expresses concern for hidradenitis suppurativa (HS) and is considering laser hair removal as a potential aid. Hyperlipidemia: - Lab work from July 08, 2024, showed a slightly elevated LDL cholesterol of 127 mg/dL. - This level has been consistent, with a previous LDL of 126 mg/dL in September 2023. History of Constipation: - The patient has a history of using Frederic aLax as needed for constipation. - She reports that the constipation has resolved since she discontinued taking an iron supplement. Past Medical History - Obstructive sleep apnea, managed with CPAP - Chronic allergic rhinitis and conjunct ivitis, managed by an lead dental assistant with weekly shots - Obesity (BMI 33.4) - Vitamin D deficiency - Generalized anxiety disorder mixed wit h depression, treated with escitalopram - Hyperlipidemia - History of constipation, resolved afte r stopping iron supplement Past Surgical History - Denies any surgeries in the last year. Family History - Denies any changes to family medical h istory. Social History - Reports no changes in work or living s ituation. Review of Systems - Dermatologic: Reports excessive undera rm sweating, which worsens with anxiety. Also reports a new issue with boils in the groin area. - Gastrointestinal: Reports a history of constipation that has since resolved after stopping iron supplementation. - Psychiatric: Reports anxiety. - All other systems reviewed and are neg ative per patient report. Physical Exam General: Well developed, well nourished, in no acute distress. Appears stated age. Head: Normocephalic, atraumatic. Eyes: Pupils are equal, round and reactive to light and accommodation. Conjunctivae are clear. Scleras nonicteric bilat. Vision grossly normal. Ears: TMs clear AU, EACS WNL Nose: Patent, without discharge. Neck: No carotid bruit bilat. Supple, no adenopathy or thyromegaly. Breast: Edu on SBE Lungs: Clear to auscultation bilaterally. No rales, rhonchi or wheeze noted. Good air flow in all kaufman. Heart: Regular rate and rhythm. No murmurs, click, rubs or gallops are noted. Abdomen: Bowel sounds present in all quadrants. The abdomen is soft, nontender, with no masses or organomegaly noted. No hernias are noted. : Deferred. Reviewed recommendations for routine CLINICAL RN Pulses: Peripheral pulses are equal and palpable bilaterally. Extremities: No clubbing, cyanosis nor edema is noted. Neurologic: Gait and station normal. Cranial Nerves 2-12 intact. Motor strength grossly symmetrical and intact. No sensory loss. Balance normal. Skin: No rashes, ulcers, or lesions noted. Turgor is good. Skin color is good. Hair and nails are without abnormalities. Noted hyperhidrosis in the axillary region. Psych: Normal eye contact, affect and mood appropriate, and normal interactions. Patient is alert and appropriate to context. Results - Labs (July 08, 2024): - CBC: Normal. - CMP: Normal kidney function, liver fun ction, and electrolytes. - LDL Cholesterol: 127 mg/dL (was 126 mg /dL in September 2023). - Vitamin D: Low. - Pap Smear (2020): Normal. Medical Decision Making The patient is a 39-year-old female who presented for a complete physical exam. Her primary new concerns are axillary hyperhidrosis and skin boils in the groin. The diagnosis of axillary hyperhidrosis is supported by her history and photographic documentation. Given that she is already established with a dermatology practice, she was advised to follow up with them for management of both the hyperhidrosis and the boils, as they are the specialists who typically treat these conditions. Her chronic medical conditions, including obstructive sleep apnea, allergic rhinitis, and anxiety with depression, appear to be stable with current management. Her vitamin D supplementation was recently increased from 1000 IU to 2000 IU daily due to persistently low levels, which will be monitored. A review of her recent labs from June 2024 showed stable, though slightly elevated, LDL cholesterol. In terms of health maintenance, she is up to date on her influenza vaccination and recent eye exam but is now due for a Pap smear. The plan is for her to continue seeing her primary care provider, Dr. Murillo, for her annual physical in one year, with labs to be drawn one week beforehand. Plan Health Maintenance - An order will be placed for a physical exam in one year with her PCP, Dr. Mcelroy. - Orders for annual labs will be placed, to be completed one week prior to her next physical. - Patient is due for a Pap smear. 1. Axillary Hyperhidrosis - Diagnosis confirmed based on patient h istory and photographic evidence. - Recommended follow-up with her dermato logist for management, as they are equipped to prescribe and treat this condition with options such as topical medications and injections. 2. Skin Boils - Advised patient to follow up with her medical assistant supervisor for evaluation and management of new boils in the groin. 3. Vitamin D Deficiency - Patient to continue taking the increas ed dose of vitamin D 2000 IU daily. - Plan to recheck vitamin D levels with her next annual labs. Patient Instructions - Please follow up with your dermatologi st to discuss treatment for excessive underarm sweating and the new boils you've noticed. - We will put in an order for you to hav e your yearly physical exam in one year with Dr. Mcelroy. - Please have your lab work done one wee k before your next yearly appointment. - You are due for a Pap smear. - Continue taking vitamin D 2000 IU callie y. - We will include wellness instructions in your discharge paperwork for today. Consent Patient was informed and verbally consented to the use of an ambient scribe for clinic note documentation during this visit. [facility] Medical History (Updated 02/08/25 @ 11:40 by MARTÍN Ann) Anxiety and depression Asthma Family History Father Lung cancer Mother Thyroid disease Social History (Reviewed 06/28/24 @ 12:59 by SALAZAR Hunter Housing: Apartment ([facility] [place] ) Patient Tobacco Use Status: Never used Tobacco e-Cigarette/Vaping Use: Never Used Second Hand Smoke Exposure: No service: No Current occupational status: employed Current occupational exposures/hazards: No Cognitive needs: No Hearing needs: No Vision needs: Yes Questionnaire PHQ-9 Over the last 2 weeks, how often have you been bothered by any of the following problems? 1. Little interest or pleasure in doing things: several days 2. Feeling down, depressed, or hopeless: several days 3. Trouble falling or staying asleep, or sleeping too much: several days 4. Feeling tired or having little energy: several days 5. Poor appetite or overeating: several days 6. Feeling bad about yourself - or that you are a failure or have let yourself or your family down: several days 7. Trouble concentrating on things, such as reading the newspaper or watching television: several days 8. Moving or speaking so slowly that other people could have noticed. Or the opposite - being so fidgety or restless that you have been moving around a lot more than usual: not at all 9. Thoughts that you would be better off or of hurting yourself in some way: not at all Total score: 7 Depression Screening Interpretation: Positive Depression Screening Follow-up: Existing condition and In treatment Depression Screening Done: Yes 00516 - PHQ-9 Billing: Yes Source: Developed by Drs. Arpan Lazo, Kandi Elizondo, Anirudh Ribera and colleagues, with an educational raffy from [employer]. Thrive Questionnaire Date Thrive assessed: 02/08/25 I am a: Patient What is your living situation today?: I have a steady place to live Within the past 12 months, did the food you bought not last and you didn't have the money to get more?: Never true Within the past 12 months, did you worry whether your food would run out before you got money to buy more?: Never true Do you have trouble paying for medicines?: No Do you have trouble getting transportation to medical appointments?: No Do you have trouble paying your heating and electricity bill?: No Do you have trouble taking care of your child, family member or friend?: No Do you have trouble with day-to-day activities such as bathing, preparing meals, shopping, managing finances, etc.?: No Are you currently unemployed and looking for a job?: No Are you interested in more education?: No Please select the resources that you would like help with: None Currently or been in a relationship where the following occur: No concerns reported THRIVE Score: 0 AUDIT C Alcohol Use Questionnaire (AUDIT-C) 1. How often do you have a drink containing alcohol?: Monthly or less 2. How many drinks containing alcohol do you have on a typical day when you are drinking?: 1 or 2 3. How often do you have six or more drinks on one occasion?: Never Total Score: 1 Score Reviewed/Action Taken: Yes GORAN-7 AMB Questionnaire GORAN-7 Date GORAN - 7 assessed: 02/08/25 Feeling nervous, anxious, or on edge: 1 = Several days Not being able to stop or control worryin = Several days Worrying too much about different things: 1 = Several days Trouble relaxin = Several days Being so restless that it is hard to sit still: 1 = Several days Becoming easily annoyed or irritable: 1 = Several days Feeling afraid as if something awful might happen: 1 = Several days Total GORAN-7 score (0-4 normal; 5-9 mild; 10-14 moderate; 15-21 severe): 7 Source: Developed by Drs. Arpan Lazo, Kandi Elizondo, Anirudh Ribera and colleagues, with an educational raffy from [employer]. GORAN-7 Assessment Billing GORAN-7 Assessment Tool: GORAN-7 Assessment 81892 Physical exam (Primary Care) Vital Signs: Last Vital Signs Temp 97.2 F 02/08/25 11:32 Pulse 50 02/08/25 11:32 Resp 12 02/08/25 11:32 BP 98/66 02/08/25 11:32 Pulse Ox 99 02/08/25 11:32 Oxygen Delivery Method Room Air 02/08/25 11:32 BMI result Body Mass Index 33.4 BMI Assessment/Plan discussion: High BMI High, discussed plan: lifestyle Tobacco/Smoking Status: Tobacco use Status Tobacco use date assessed 02/08/25 02/08/25 11:34 Patient Tobacco Use Status Never used Tobacco 02/08/25 11:29 e-Cigarette/Vaping Use Never Used 02/08/25 11:29 PHQ-9: PHQ-9 Score PHQ-9: Total score 7 02/08/25 11:29 Depression Screening Interpretation: Positive Depression Screening Follow-up: Existing condition and In treatment Thrive Assessment: Date of Thrive Assessment Date Thrive assessed 02/08/25 02/08/25 11:29 Currently or been in a relationship where the following occur: No concerns reported Coding Level of Care Code Est Pt Prev Care 18-39y([id number]) Diagnoses Adult general medical exam Z00.00 LULA on CPAP G47.33; Z99.89 Obesity (BMI 30-39.9) E66.9 Axillary hyperhidrosis L74.510 Laboratory exam ordered as part of routine general medical examination Z00.00 Elevated LDL cholesterol level E78.00 Vitamin D deficiency E55.9 Additional Codes GORAN-7 Assessment Billing - GORAN-7 Assessment Tool: GORAN-7 Assessment [id number] ([id number]) PHQ-9 - 13648 - PHQ-9 Billing: Yes ([id number]) Assessment & Plan Assessment & Plan (1) Adult general medical exam: Onset Date: ~02/08/25 Code(s): Z00.00 - Encounter for general adult medical examination without abnormal fi ndings Category: Medical (2) LULA on CPAP: Code(s): G47.33 - Obstructive sleep apnea (adult) (pediatric); Z99.89 - Dependence on other enabling machines and devices Category: Medical (3) Obesity (BMI 30-39.9): Code(s): E66.9 - Obesity, unspecified Category: Medical (4) Axillary hyperhidrosis: Code(s): L74.510 - Primary focal hyperhidrosis, axilla Category: Medical (5) Laboratory exam ordered as part of routine general medical examination: Code(s): Z00.00 - Encounter for general adult medical examination without abnormal findings Category: Medical (6) Elevated LDL cholesterol level: Code(s): E78.00 - Pure hypercholesterolemia, unspecified Category: Medical (7) Vitamin D deficiency: Code(s): E55.9 - Vitamin D deficiency, unspecified Category: Medical Plan . Orders: Orders Complete Blood Count no Diff 1 Year E55.9 - Vitamin D deficiency, unspecified, E78.00 - Pure hypercholesterolemia, unspecified, Z00.00 - Encounter for general adult medical examination without abnormal findings TSH reflex Free T4 1 Year E55.9 - Vitamin D deficiency, unspecified, E78.00 - Pure hypercholesterolemia, unspecified, Z00.00 - Encounter for general adult medical examination without abnormal findings Vitamin D 25-OH Total 1 Year E55.9 - Vitamin D deficiency, unspecified, E78.00 - Pure hypercholesterolemia, unspecified, Z00.00 - Encounter for general adult medical examination without abnormal findings Comprehensive [place]. Panel Fast 1 Year E55.9 - Vitamin D deficiency, unspecified, E78.00 - Pure hypercholesterolemia, unspecified, Z00.00 - Encounter for general adult medical examination without abnormal findings Hemoglobin A1c 1 Year E55.9 - Vitamin D deficiency, unspecified, E78.00 - Pure hypercholesterolemia, unspecified, Z00.00 - Encounter for general adult medical examination without abnormal findings Lipid Panel 1 Year E55.9 - Vitamin D deficiency, unspecified, E78.00 - Pure hypercholesterolemia, unspecified, Z00.00 - Encounter for general adult medical examination without abnormal findings Microalbumin, Random (w Creat) 1 Year E55.9 - Vitamin D deficiency, unspecified, E78.00 - Pure hypercholesterolemia, unspecified, Z00.00 - Encounter for general adult medical examination without abnormal findings UA CC w/rflx Micro + Cult 1 Year E55.9 - Vitamin D deficiency, unspecified, E78.00 - Pure hypercholesterolemia, unspecified, R30.0 - Dysuria, Z00.00 - Encounter for general adult medical examination without abnormal findings Vitamin B12 and Folate 1 Year E55.9 - Vitamin D deficiency, unspecified, E78.00 - Pure hypercholesterolemia, unspecified, Z00.00 - Encounter for general adult medical examination without abnormal findings Medications: Changed From cholecalciferol (vitamin D3) 25 mcg PO DAILY 30 days 30 caps 6RF E55.9 - Vitamin D deficiency, unspecified To cholecalciferol (vitamin D3) 50 mcg (2 x 25 mcg (1,000 unit)) PO DAILY 60 caps 6RF 30 days E55.9 - Vitamin D deficiency, unspecified Discontinued doxycycline hyclate Discontinued Reason: Patient Completed Course 200 mg (2 x 100 mg) PO ONCE 1 day 2 tabs 0RF Patient Instructions: Health screenings for women You should visit your health care provider from time to time, even if you are healthy. The purpose of these visits is to: Screen for medical issues Assess your risk for future medical problems Encourage a healthy lifestyle Update vaccinations and other preventive care services Help you get to know your provider in case of an illness Information Even if you feel fine, you should still see your provider for regular checkups. These visits can help you avoid problems in the future. For example, the only way to find out if you have high blood pressure is to have it checked regularly. High blood sugar and high cholesterol levels also may not have any symptoms in the early stages. A simple blood test can check for these conditions. There are specific times when you should see your provider or receive specific health screenings. The [place] Preventive Services Task Force publishes a list of recommended screenings. Below are screening guidelines for women ages 18 to 39. BLOOD PRESSURE SCREENING Your blood pressure should be checked at least once every 3 to 5 years if: Your blood pressure is in the normal range (top number less than 120 mm Hg and bottom number less than 80 mm Hg) You don't have risk factors for high blood pressure Ask your provider if you need your blood pressure checked more often if: The top number is 120 to 129 mm Hg or the bottom number is 70 to 79 mm Hg You have diabetes, heart disease, kidney problems, are overweight, or have certain other health conditions You have a first-degree relative with high blood pressure You are Black You had high blood pressure during a If the top number is 130 mm Hg or greater or the bottom number is 80 mm Hg or greater, this is considered stage 1 hypertension. Schedule an appointment with your provider to learn how you can reduce your blood pressure. Watch for blood pressure screenings in your area. Ask your provider if you can stop in to have your blood pressure checked. BREAST CANCER SCREENING Experts do not agree about the benefits of breast self-exams in finding breast cancer or saving lives. Talk to your provider about what is best for you. A screening mammogram is not recommended for most women under age 40. Your provider may discuss and recommend mammograms, MRI scans, or ultrasounds if you have an increased risk for breast cancer, such as: A mother or sister who had breast cancer at a young age (most often starting screening earlier than the age the close relative was diagnosed) You carry a high-risk genetic marker CERVICAL CANCER SCREENING Cervical cancer screening should start at age 21 years unless your provider advises otherwise. After the first test: Women ages 21 through 29 should have a Pap test every 3 years. Exoprts do not agree on whether HPV testing is recommended for this age group. Women ages 30 through 65 should be screened with either a Pap test every 3 years or the HPV test every 5 years or both tests every 5 years (called cotesting ). Women who have been treated for precancer (cervical dysplasia) should continue to have Pap tests for 20 years after treatment or until age 65, whichever is longer. If you have had your uterus and cervix removed (total hysterectomy), and you have not been diagnosed with cervical cancer or precancer (high grade cervical neoplasia), you do not need cervical cancer screening. CHOLESTEROL SCREENING Cholesterol screening should begin at: Age 45 for women with no known risk factors for coronary heart disease Age 20 for women with known risk factors for coronary heart disease Repeat cholesterol screening should take place: Every 5 years for women with normal cholesterol levels More often if changes occur in lifestyle (including weight gain and diet) More often if you have diabetes, heart disease, kidney problems, or certain other conditions DIABETES SCREENING You should be screened for diabetes starting at age 35 and then repeated every 3 years if you have no risk factors for diabetes. Screening may need to start earlier and be repeated more often if you have other risk factors for diabetes, such as: You have a first degree relative with diabetes. You are overweight or have obesity. You have high blood pressure, prediabetes, or a history of heart disease. Screening for diabetes should be done if you are planning to become and you are overweight and have other risk factors such as high blood pressure. DENTAL EXAM Go to the dentist once or twice every year for an exam and cleaning. Your dentist will evaluate if you need more frequent visits. EYE EXAM Have an eye exam every 5 to 10 years before age 40. If you have vision problems, have an eye exam every 2 years or more often if recommended by your provider. You should have an eye exam that includes an examination of your retina (back of your eye) at least every year if you have diabetes. IMMUNIZATIONS Commonly needed vaccines include: Flu shot: get one every year. COVID-19 vaccine: ask your provider what is best for you. Tetanus-diphtheria and acellular pertussis (Tdap) vaccine: have one at or after age 19 as one of your tetanus-diphtheria vaccines if you did not receive it as an adolescent. Tetanus-diphtheria: have a booster (or Tdap) every 10 years. Varicella vaccine: receive 2 doses if you never had chickenpox or the varicella vaccine. Hepatitis B vaccine: receive 2, 3, or 4 doses, depending on your exact circumstances. Measles, mumps, and rubella (MMR) vaccine: receive 1 to 2 doses if you are not already immune to MMR. Your provider can tell you if you are immune. Ask your provider about the human papillomavirus (HPV) vaccine if: You have not received the HPV vaccine in the past You have not completed the full vaccine series (you should catch up on this shot) Ask your provider if you should receive other immunizations if you have certain health problems that increase your risk for some diseases such as pneumonia. INFECTIOUS DISEASE SCREENING Women who are sexually active should be screened for chlamydia and gonorrhea up until age 25. Women 25 years and older should be screened for chlamydia and gonorrhea if at high risk. Screening for hepatitis C: All adults ages 18 to 79 should get a one-time test for hepatitis C. people should be screened at every . Screening for human immunodeficiency virus (HIV): All people ages 15 to 65 should get a one-time test for HIV. Depending on your lifestyle and medical history, you may also need to be screened for infections such as syphilis and HIV, as well as other infections. PHYSICAL EXAM All adults should visit their provider from time to time, even if they are healthy. The purpose of these visits is to: Screen for disease Assess your risk of future medical problems Encourage a healthy lifestyle Update your vaccinations and other preventive care services Maintain a relationship with a provider in case of an illness Your height, weight, and BMI should be checked at every exam. During your exam, your provider may ask you about: Depression and anxiety Diet and exercise Alcohol and tobacco use Safety issues, such as using seat belts, smoke detectors, and intimate partner violence Your medicines and risk for interactions SKIN SELF-EXAM Your provider may check your skin for signs of skin cancer, especially if you're at high risk, such as if you: Have had skin cancer before Have close relatives with skin cancer Have a weakened immune system OTHER SCREENING Talk with your provider about colon cancer screening if you have a strong family history of colon cancer or polyps, or if you have had inflammatory bowel disease or polyps yourself. Routine bone density screening of women under 40 is not recommended.
[2025-02-08 11:32] VITALS: BP 98/66; PULSE 50; RESP 12; TEMP 36.2; O2SAT 99; BMI 33.4
--- OUTSIDE RECORDS SUMMARY | 2025-02-08 14:11 | XMS_ITS | Clinical Summary ---
Author Organization [facility] Address [address] [place] [address] Care Team Providers Care Reliability Engineer Name Role Phone Unavailable Primary Care [...] 03/31/2020 Alcohol and Drug Screen 03/30/2024 10/08/2016 [id number] ( season) 2024 Imm-Influenza (#1) 2024 Cervical Ablation/Cold-Knife Conization Discontinued Cervical Cryotherapy Discontinued Colposcopy Discontinued Excision/Leep Discontinued HPV Genotyping Discontinued Vaginal Pap Discontinued Vulvoscopy Discontinued Insurance [facility]
--- OUTSIDE RECORDS SUMMARY | 2025-02-08 14:11 | XMS_ITS | Clinical Summary ---
Author Organization [facility] Address [address] [place] [id number] Phone Care Team Providers Care Associate Genetics Professor Name Role Phone Pcp, Unknown Primary Care [...] HEPATITIS C SCREENING 10/21/2003 HIV ONE-TIME SCREENING (18-65 YEARS) 10/21/2003 PAP SMEAR 2006 INFLUENZA VACCINE (#1) 2024 , 03/04/2017, 03/27/2016 COVID-19 VACCINE ( season) 2024 01/03/2022 Adult Td,Tdap Booster 04/10/2026 04/10/2016 , 06/01/2005, 08/15/1996 HIB VACCINES Completed 03/30/1987 IPV VACCINES Completed 10/28/1990, 03/1987, 09/27/1986, Additional history exists MENINGOCOCCAL VACCINES (ACWY) Aged Out 06/29/2007 No longer eligible based on patient's age to complete this topic HEPATITIS A VACCINES Aged Out 09/05/2016, 04/10/2016, 02/02/2009 No longer eligible based on patient's age to complete this topic MENINGOCOCCAL VACCINES (B) Aged Out N o longer eligible based on patient's age to complete this topic PNEUMOCOCCAL VACCINES (0-49 years) Aged Out No longer eligible based on patient's age to complete this topic Medical Devices Not on file Insurance HMO [place] [address] [place] [address] [place] [address] [place] [address] [place] [address] [place] [address] [place] [address] [place] [address] HMO POS [facility] [place] [address] [place] [address] [place] [address] [place] [address] HMO POS Care Teams Associate Genetics Professor Relationship Specialty Start Date End Date Pcp, Unknown PCP - General 12/31/21 Additional Source Comments The information contained in this document represents components of the legal health record. It is not the complete legal health record.[facility]
== END 2025-02-08 11:52 | disposition home or self-care (01) ==
LOC: HO.HMCFM 11:25
PROVIDERS: PCP Family Medicine; Visit Provider Nurse Practitioner Family
DX: Z00.00 Encounter for general adult medical examination without abnormal findings (principal); G47.33 Obstructive sleep apnea (adult) (pediatric); E66.9 Obesity, unspecified; Z68.33 Body mass index [BMI] 33.0-33.9, adult; Z99.89 Dependence on other enabling machines and devices; L74.510 Primary focal hyperhidrosis, axilla; E78.00 Pure hypercholesterolemia, unspecified; E55.9 Vitamin D deficiency, unspecified

== ENCOUNTER → 2025-02-08 11:24 | Outpatient (BNVA) | payer BC, SELFPAY | PROVIDERS: PCP Family Medicine; Visit Provider Nurse Practitioner Family | DX: Z00.00 Encounter for general adult medical examination without abnormal findings (principal); G47.33 Obstructive sleep apnea (adult) (pediatric); J30.9 Allergic rhinitis, unspecified; F32.A Depression, unspecified; F41.1 Generalized anxiety disorder; E55.9 Vitamin D deficiency, unspecified; E66.9 Obesity, unspecified; L02.224 Furuncle of groin; L74.510 Primary focal hyperhidrosis, axilla; E78.00 Pure hypercholesterolemia, unspecified; Z99.89 Dependence on other enabling machines and devices; Z68.33 Body mass index [BMI] 33.0-33.9, adult | CPT/HCPCS: 96127 ==